=== PATIENT | female | born 1990 | race Caucasian/White ===

== ENCOUNTER 2022-12-28 20:45 | Outpatient (REF) | payer OTHER, SELFPAY ==
[2023-01-01 15:08] LABS: Age Gdln ACOG Testing Note (.); HPV Aptima Negative (Negative); IGP, Aptima HPV, rfx 16/18,45 Note (.)
== END 2022-12-28 20:46 | disposition home or self-care (01) ==
LOC: LAB 20:45
PROVIDERS: Visit Provider Obstetrics & Gynecology
DX: Z01.419 Encounter for gynecological examination (general) (routine) without abnormal findings (principal)
CPT/HCPCS: 87624; G0145

== ENCOUNTER 2023-03-03 17:02 | Outpatient (OUT) | payer OTHER, SELFPAY ==
--- NOTE | 2023-03-03 | US_ITS ---
[address] [address] Patient Name: YENI MONTAGUE MRN: [id number] date: 1990 Sex: F Assigned Patient Location: Current Patient Location: Accession/Order Number: [id number] Exam Date: 03/03/2023 17:06 Report Date: 03/03/2023 20:22 At the request of: ANDI MCDERMOTT Procedure: US pelvis transvaginal EXAM: Pelvic ultrasound HISTORY: . ABNORMAL UTERINE BLEEDING N93.9 PELVIC PAIN IN FEMALE R10.2 . COMPARISON: None. TECHNIQUE: Transvaginal scanning was performed FINDINGS: Eating of the pelvis demonstrates uterus to be retroverted and measures 7.6 x 5.3 x 5.7 cm. Endometrial complex measures 8 mm. In the endometrial cavity of the fundus of uterus there is a 7 x 5 x 3 mm hyperechoic lesion. There is a small amount of hypoechogenicity surrounding this hyper paracolic lesion. Right ovary measures 2.5 x 1.4 x 2.8 cm. Color-flow is noted. Follicles are noted. Left ovary measures 3.3 x 2.1 x 2 cm. Color-flow is noted. Follicles are noted. There is a 1.4 x 1.2 x 0.7 cm avascular cystic structure in the left ovary. No fluid is noted in the cul-de-sac. US/US pelvis transvaginal IMPRESSION: 1. Retroverted uterus. 2. Endometrial complex measures 8 mm. Within the endometrial cavity of the fundus of uterus there is a 7 x 5 x 3 mm hyperechoic lesion. This could represent a blood clot or a polyp. Less likely would be a neoplasm. There appears to be a small amount of fluid and/or blood around this lesion. 3. Normal right ovary. 4. 1.4 x 0.7 cm avascular complicated cystic structure in the right ovary. This most likely represents a follicle with a small amount of blood. Electronically authenticated by: KAT MENDEZ Date: 03/03/2023 20:22
== END 2023-03-03 17:03 | disposition home or self-care (01) ==
LOC: US 17:02
PROVIDERS: Visit Provider Obstetrics & Gynecology
DX: R10.2 Pelvic and perineal pain (principal); N93.9 Abnormal uterine and vaginal bleeding, unspecified; N83.291 Other ovarian cyst, right side
CPT/HCPCS: 76830

== ENCOUNTER 2023-06-07 14:32 | Outpatient (OUT) | payer OTHER, SELFPAY ==
[2023-06-07 15:08] LABS: Basophils Percent Auto 0.1 % (0.2-2.0); Eosinophils Absolute Auto 0.1 10^3/uL (0.0-0.7); Eosinophils Percent Auto 0.8 % (0.9-7.0); Hematocrit 41.3 % (36.0-48.0); Hemoglobin 13.7 g/dL (12.0-16.0); Immature Granulocytes Abs Auto 0.02 10^3/uL (0.00-0.03); Immature Granulocytes Pct Auto 0.3 % (0.0-0.5); Lymphocytes Absolute Auto 2.9 10^3/uL (1.2-3.8); Lymphocytes Percent Auto 36.3 % (20.5-60.0); Mean Corpuscular HGB Conc 33.2 g/dL (29.9-35.2); Mean Corpuscular Hemoglobin 31.5 pg (26.7-34.0); Mean Corpuscular Volume 94.9 fL (81.0-99.0); Mean Platelet Volume 8.9 fL (9.5-13.5); Monocytes Absolute Auto 0.4 10^3/uL (0.3-0.8); Monocytes Percent Auto 5.1 % (1.7-12.0); Neutrophils Absolute Auto 4.5 10^3/uL (1.4-6.5); Neutrophils Percent Auto 57.4 % (43.0-75.0); Platelet Count 213 10^3/uL (150-450); Red Blood Count 4.35 10^6/uL (4.20-5.40); Red Cell Distribution Width 12.2 % (11.0-15.0); White Blood Count 7.9 10^3/uL (4.0-11.0)
[2023-06-07 15:31] LABS: INR 0.95; Partial Thromboplastin Time 32.5 sec (22.3-36.2); Prothrombin Time 10.1 sec (9.0-11.6)
[2023-06-07 16:04] LABS: Alanine Aminotransferase 24 U/L (14-59); Albumin Globulin Ratio 1.2; Albumin Level 4.1 g/dL (3.4-5.0); Alkaline Phosphatase 50 U/L (46-116); Anion Gap 11.8; Aspartate Amino Transferase 10 U/L (15-37); BUN Creatinine Ratio 25.3; Bilirubin Direct 0.1 mg/dL (0.0-0.2); Bilirubin Total 0.2 mg/dL (0.2-1.0); Calcium 9.1 mg/dL (8.5-10.1); Carbon Dioxide 30.4 mmol/L (21.0-32.0); Chloride 101 mmol/L (98-107); Estimated GFR (African America >60 (>=60); Estimated GFR (Non-African Ame >60 (>=60); Globulin 3.3 g/dL; Glucose 92 mg/dL (74-106); Potassium 4.2 mmol/L (3.5-5.1); Sodium 139 mmol/L (136-145); Total Protein 7.4 g/dL (6.4-8.2)
== END 2023-06-07 14:33 | disposition home or self-care (01) ==
LOC: PST 14:33
PROVIDERS: Visit Provider Obstetrics & Gynecology
DX: Z01.812 Encounter for preprocedural laboratory examination (principal); N94.10 Unspecified dyspareunia; R10.2 Pelvic and perineal pain; N92.0 Excessive and frequent menstruation with regular cycle; N94.6 Dysmenorrhea, unspecified
CPT/HCPCS: 80048; 80076; 85025; 85610; 85730; 86850; 86900; 86901

== ENCOUNTER 2023-06-16 08:56 | Day surgery (SDC) | payer OTHER, SELFPAY ==
[2023-06-07 14:59] VITALS: BP 127/88; PULSE 80; RESP 14; TEMP 36.5; O2SAT 95; BMI 20.5
[2023-06-16] VITALS (13 sets, daily range): BP systolic 101–125; BP diastolic 66–78; PULSE 68–96; RESP 12–18; TEMP 36.4–36.6; O2SAT 92–97
[2023-06-16] MEDS: LACTATED RINGER'S SOLUTION 1,000 ML 50 ML IV (09:24)
[2023-06-16 09:25] LABS: HCG Quantitative <1 mIU/mL
[2023-06-16] MEDS: CEFAZOLIN SODIUM/DEXTROSE,ISO 1 GM/50 ML IV.SOLN IV ×2 (10:12→16:12)
[2023-06-16] MEDS: SCOPOLAMINE 1 MG/3 DAYS TRANSDERM PATCH 1 PATCH TD (10:34)
[2023-06-16] MEDS: LIDOCAINE HCL 1%-EPINEPHRINE 1:100,000 20 ML MDV INJ (12:00)
[2023-06-16] MEDS: 0.9 % SODIUM CHLORIDE 10 ML 60 ML INJ (12:00)
[2023-06-16] MEDS: LACTATED RINGER'S SOLUTION 1,000 ML 125 ML IV (12:33)
[2023-06-16] MEDS: ONDANSETRON PF 4 MG/2 ML VIAL IV (14:36)
--- NOTE | 2023-06-16 15:26 | PM.ONB ---
Brief Operative Note Date of procedure: 06/16/23 Pre-op diagnosis: menorrhagia, dysmenorrhea Post-op diagnosis: same as pre-op Procedure: NAME OF PROCEDURE: ? vNOTES hysterectomy with cystoscopy. PROCEDURE:? Patient was brought back to the operating room where she was given general anesthesia.? She was placed in the dorsolithotomy position, after being prepped and draped in a sterile fashion.? A Pickens catheter was placed.? A weighted speculum was placed posterior in the vagina.? The cervix was grasped anteriorly and posteriorly with two single tooth tenaculums and placed on traction.? A solution of Marcaine, lidocaine and epinephrine and saline was liberally infiltrated into the cervical vaginal junction.? The knife was then used to circumscribe the cervical vaginal junction and the posterior cul-de-sac was sharply entered without difficulty.? A long weighted duck tail speculum was placed and the peritoneum was tacked to the vaginal epithelium.? We then turned our attention to the uterosacral ligaments which were bilaterally cross clamped, transected and suture ligated and then were held with hemostats.? Attention was then turned to the anterior compartment, where the cervical vaginal junction was similarly divided, and the bladder was then sharply and bluntly dissected off the cervix and the lower uterine segment, and the anterior cul-de-sac was sharply entered.? The vaginal epithelium was tacked to the peritoneum.? Lateral attachments of the uterus were secured with Marlyn clamps and suture ligated.? The retractors were then removed and were placed by the path inner ring anteriorly followed by posteriorly.? Once the ring was seated, the gel cap was placed and the laparoscopic ports were placed through this cap and the gas was allowed to insufflate the pelvis.? A GynLap was placed posteriorly to facilitate mobilization of the bowel, control bleeding.? This was later retrieved.? The LigaSure device was used to secure the lateral attachments of the uterus on the left side, including the cardinal ligaments and the uterine vasculature.? Once the utero-ovarian ligament was reached, we turned our attention to the right side where the LigaSure device was used to fully detach the uterus from the pelvic side wall.? Please note absent tubes were seen. The ureters were seen visually; before, during and after the pedicles were created.? The ureters were bilaterally in normal locations, peristalsing.? ?? Please note that the LigaSure was used on the patient?s left side to fully detach the uterus from the pelvic side wall.? The uterus was removed from the field.? The GynLap was also removed from the field.? The inner ring and gel port caps were removed and the vaginal retractors were replaced.? Lateral figure of eight sutures were placed bilaterally, where bleeding occurred, behind the ring, and no further sutures were needed.? The colpopexy was then carried out, passing a stitch posteriorly to the vaginal wall, capturing the left uterosacral ligament, going across the peritoneum posteriorly to the right and exiting out the vaginal wall posteriorly.? The vaginal cuff was closed in a single running locked stitch using 0 Monocryl, and the uterosacral ligaments were cut.? Once the vaginal cuff was fully closed, the uterosacral colpopexy stitch was then tied down tightly, elevating the vaginal cuff to the uterosacral ligaments in a satisfactory manner.? The Pickens catheter was removed and the patient was awakened and taken to recovery in excellent condition.? Sponge, lap and instruments counts correct x2.? Anesthesia: FELA Surgeon: Ruben Rebolledo Contact Officer: Stephy Johnson Estimated blood loss (mL): 150 Pathology: other (uterus, cervix) Condition: stable Disposition: PACU
[2023-06-16] MEDS: IBUPROFEN 400 MG TABLET 800 MG PO (16:11)
[2023-06-16 18:07] LABS: Hematocrit 38.1 % (36.0-48.0); Hemoglobin 12.4 g/dL (12.0-16.0); Immature Granulocytes Abs Auto 0.04 10^3/uL (0.00-0.03); Immature Granulocytes Pct Auto 0.5 % (0.0-0.5); Lymphocytes Absolute Auto 0.4 10^3/uL (1.2-3.8); Lymphocytes Percent Auto 4.9 % (20.5-60.0); Mean Corpuscular HGB Conc 32.5 g/dL (29.9-35.2); Mean Corpuscular Hemoglobin 30.7 pg (26.7-34.0); Mean Corpuscular Volume 94.3 fL (81.0-99.0); Mean Platelet Volume 8.9 fL (9.5-13.5); Monocytes Absolute Auto 0.2 10^3/uL (0.3-0.8); Monocytes Percent Auto 2.1 % (1.7-12.0); Neutrophils Absolute Auto 7.2 10^3/uL (1.4-6.5); Neutrophils Percent Auto 92.5 % (43.0-75.0); Platelet Count 176 10^3/uL (150-450); Red Blood Count 4.04 10^6/uL (4.20-5.40); Red Cell Distribution Width 12.4 % (11.0-15.0); White Blood Count 7.7 10^3/uL (4.0-11.0)
== END 2023-06-16 18:30 | disposition home or self-care (01) ==
LOC: SURGOUT 12:10 → MS 12:48
PROVIDERS: Visit Provider Obstetrics & Gynecology
PROC: (CPT 944; principal; 2023-06-16 10:10)
DX: R10.2 Pelvic and perineal pain (principal); N92.0 Excessive and frequent menstruation with regular cycle; N94.6 Dysmenorrhea, unspecified; D25.9 Leiomyoma of uterus, unspecified; N72 Inflammatory disease of cervix uteri; Z98.51 Tubal ligation status; N94.10 Unspecified dyspareunia; K21.9 Gastro-esophageal reflux disease without esophagitis; Z86.16 Personal history of COVID-19
CPT/HCPCS: 58550; 36415; 84702; 85025; 88307; 94667; 94668; J1170; J2704

== ENCOUNTER 2023-11-05 11:45 | Outpatient (OUT) | payer OTHER, SELFPAY ==
--- NOTE | 2023-11-05 11:50 | US_ITS ---
The [address] [address] Patient Name: YENI MONTAGUE MRN: [id number] date: 1990 Sex: F Assigned Patient Location: US Current Patient Location: US Accession/Order Number: [id number] Exam Date: 11/05/2023 12:15 Report Date: 11/05/2023 14:15 At the request of: SJ VALLEJO Procedure: US venous doppler LE LT EXAM: US venous doppler LE LT HISTORY: Left Calf Pain M79.662 COMPARISON: None. TECHNIQUE: Grayscale, color and Doppler FINDINGS: Region: Left leg Thrombus: None Flow: Normal Augmentation: Normal Compressibility: Normal US/US venous doppler LE LT IMPRESSION: No deep or superficial vein thrombus identified in the left leg Electronically authenticated by: KAT VERA Date: 11/05/2023 14:15
--- OUTSIDE RECORDS SUMMARY | 2023-11-05 12:04 | XMS_ITS | CCD ---
Author Organization [facility] Care Team Providers Care Information Delivery Analyst Name Role Phone BALDEMAR, DR ESCAMILLA Admitting Unavailable BALDEMAR, DR ESCAMILLA Attending Unavailable BALDEMAR, DR ESCAMILLA Primary Care Unavailable BALDEMAR, DR ESCAMILLA Admitting Unavailable BALDEMAR, DR ESCAMILLA Attending Unavailable BALDEMAR, DR ESCAMILLA Primary Care Unavailable BALDEMAR, DR ESCAMILLA Consulting Unavailable BALDEMAR, DR ESCAMILLA Admitting Unavailable BALDEMAR, DR ESCAMILLA Attending Unavailable BALDEMAR, DR ESCAMILLA Primary Care Unavailable BALDEMAR, DR ESCAMILLA Consulting Unavailable NANCY MENDIOLA Consulting Unavailable GUERO, DR CEDILLO Consulting Unavailable BALDEMAR, DR ESCAMILLA Admitting Unavailable BALDEMAR, DR ESCAMILLA Attending Unavailable BALDEMAR, DR ESCAMILLA Primary Care Unavailable BALDEMAR, DR ESCAMILLA Consulting Unavailable MISC, DR CHAPMAN Admitting Unavailable MISC, DR CHAPMAN Attending Unavailable BALDEMAR, DR ESCAMILLA Primary Care Unavailable MISC, DR CHAPMAN Consulting Unavailable KAT MENDEZ Consulting Unavailable BALDEMAR, DR ESCAMILLA Admitting Unavailable BALDEMAR, DR ESCAMILLA Attending Unavailable BALEDMAR, DR ESCAMILLA Primary Care Unavailable Effort, DR Mesa Consulting Unavailable BALDEMAR, DR ESCAMILLA Consulting Unavailable MISC, DR CHAPMAN Admitting Unavailable MISC, DR CHAPMAN Attending Unavailable BALDEMAR, DR ESCAMILLA Primary Care Unavailable Guero ROBBINS, Laine Primary Care Provider LAINE JACK Referring Unavailable LAINE JACK Primary Care Unavailable ANDI REBOLLEDO Attending Unavailable CLAIR BREWER Attending Unavailable CLAIR BREWER Attending Unavailable Problems Active Problems Problem Classification Problem Date Documented Date Episodic/Chronic Contraceptive and procreative management (4 sources) Encounter for sterilization; Translations: [ENCOUNTER FOR STERILIZATION] Onset: 10-24-2021 Episodic Headache; including migraine (2 sources) Migraine without aura, not intractable, without status migrainosus; Translations: [Migraine without aura, not intractable, without status migrainosus] Onset: 05-15-2022 Chronic Immunizations and screening for infectious disease (1 source) Encounter for screening for human papillomavirus (HPV); Translations: [ENC SCREENING HUMAN PAPILLOMAVIRUS] Onset: 12-25-2021 Episodic Menstrual disorders (6 sources) Excessive and frequent menstruation with regular cycle; Translations: [Dysmenorrhea, unspecified] Onset: 09-16-2021 Chronic Other female genital disorders (1 source) Abnormal uterine and vaginal bleeding, unspecified; Translations: [ABNORMAL UTERINE VAGINAL BLEED UNS] Onset: 10-30-2021 Chronic Other female genital disorders (1 source) Other noninflammatory disorders of ovary, fallopian tube and broad ligament; Translations: [OTH NONINFL D/O OVARY TUBE AND BRD LIG] Onset: 10-30-2021 Episodic Other screening for suspected conditions (not mental disorders or infectious disease) (4 sources) Encounter for screening for malignant neoplasm of cervix; Translations: [ENC SCREENING MALIG NEOPLASM CERV] Onset: 12-23-2021 Episodic Other upper respiratory disease (2 sources) Allergic rhinitis, unspecified; Translations: [Allergic rhinitis, unspecified] Onset: 05-15-2022 Chronic Unclassified (1 source) CONTACT W/AND (SUSP) EXPOS COVID-19; Translations: [CONTACT W/AND (SUSP) EXPOS COVID-19] Onset: 10-24-2021 Past or Other Problems Problem Classification Problem Date Documented Da te Episodic/Chronic Abdominal pain (4 sources) Right upper quadrant pain; Translations: [RIGHT UPPER QUADRANT PAIN] Onset: 01-22-2021 Episodic Other gastrointestinal disorders (1 source) Diarrhea, unspecified; Translations: [DIARRHEA UNSPECIFIED] Onset: 02-01-2021 Episodic Ovarian cyst (1 source) Other ovarian cyst, left side; Translations: [OTHER OVARIAN CYST LEFT SIDE] Onset: 09-17-2021 Episodic Results Test Name Value Interpretation Reference Range Facil ity B12/Folate Panelon 2 Cobalamin (Vitamin B12) [Mass/Vol] 349 pg/mL Normal 232-[address] [facility] Comment on above: Performed By: #### F T4, LIPR, B12FOL #### [facility] [address] [place], [place] [id number] License Distributor: Juan Ramon Pandya MD #### TSHX, MG, URI, CK, CP, CDP #### [address] [place] [address] License Distributor: Kat Villalobos MD Folic Acid 13.5 ng/mL Normal >4.[address] [facility] Comment on above: Performed By: #### F T4, LIPR, B12FOL #### [address] [id number] License Distributor: Juan Ramon Pandya MD #### TSHX, MG, URI, CK, CP, CDP #### [address] [place] [address] License Distributor: Kat Villalobos MD Lipid Profileon 05-16-2022 Cholesterol [Mass/Vol] 179 mg/dL Normal <[address] [facility] Comment on above: Result Comment: Cholesterol Guidelines: <200 Desirable 200-240 Borderline >240 Undesirable Performed By: #### F T4, LIPR, B12FOL #### [address] [address] License Distributor: Juan Ramon Pandya MD #### TSHX, MG, URI, CK, CP, CDP #### [address] [place], [id number] License Distributor: Kat Villalobos MD Cholesterol in HDL [Mass/Vol] 49 mg/dL Normal >[address] [facility] Comment on above: Result Comment: HDL Guidelines: <40 Undesirable 40-59 Borderline >59 Desirable Performed By: #### F T4, LIPR, B12FOL #### [address] [address] License Distributor: Juan Ramon Pandya MD #### TSHX, MG, URI, CK, CP, CDP #### [address] [place] [address] License Distributor: Kat Villalobos MD Cholesterol in LDL [Mass/Vol] 121 mg/dL Normal 0-[address] [facility] Comment on above: Result Comment: LDL Guidelines: <100 Desirable 100-129 Near to/above Desirable 130-159 Borderline >159 Undesirable Direct (measured) LDL and calculated LDL are not interchangeable tests. Performed By: #### F T4, LIPR, B12FOL #### [place] [place] [address] License Distributor: Juan Ramon Pandya MD #### TSHX, MG, URI, CK, CP, CDP #### [facility] [address] [place] [address] License Distributor: Kat Villalobos MD Cholesterol.total/Ch olesterol in HDL [Mass ratio] 3.7 {ratio} Normal <[address] [facility] Comment on above: Performed By: #### F T4, LIPR, B12FOL #### [address] [address] License Distributor: Juan Ramon Pandya MD #### TSHX, MG, URI, CK, CP, CDP #### [address] [place] [address] License Distributor: Kat Villalobos MD Triglyceride [Mass/Vol] 46 mg/dL Normal <[address] [facility] Comment on above: Result Comment: Triglyceride Guidelines: <150 Desirable 150-199 Borderline 200-499 High >499 Very high Based on AHA Guidelines for fasting triglyceride, April 2012. Performed By: #### F T4, LIPR, B12FOL #### [address] [place], [place] [id number] License Distributor: Juan Ramon Pandya MD #### TSHX, MG, URI, CK, CP, CDP #### [facility] [address] [place] [address] License Distributor: Kat Villalobos MD Thyroxine, Freeon 05-16-2022 Thyroxine, Free 1.25 ng/dL Normal 0.93-1.70 [facility] Comment on above: Performed By: #### F T4, LIPR, B12FOL #### [facility] [address] [place] [address] License Distributor: Juan Ramon Pandya MD #### TSHX, MG, URI, CK, CP, CDP #### [facility] [address] [place] [address] License Distributor: Kat Villalobos MD CBC with Auto Differentialon 05-15-2022 Absolute Eos # 0.05 [place] [facility] Absolute Immature Granulocyte [facility] Absolute Lymph # 2.08 [facility] Absolute Sawyer # 0.29 [facility] Basophils Absolute [facility] Basophils/100 WBC (Bld) 0 % 0 - 2 % [facility] Eosinophils/100 WBC (Bld) 1 % 1 - 4 % [facility] Hematocrit (Bld) [Volume fraction] 43.3 % 36.3 - 47.1 % [facility] Hemoglobin (Bld) [Mass/Vol] 14.4 g/dL 11.9 - 15.1 g/dL [facility] Immature granulocytes/100 WBC (Bld) 0 % 0 [facility] Interpretation and review of laboratory results Abnormal [facility] Lymphocytes/100 WBC (Bld) 44 % High 24 - 43 % [facility] MCH (RBC) [Entitic mass] 31.7 pg 25.2 - 33.5 pg [facility] MCHC (RBC) [Mass/Vol] 33.3 g/dL 28.4 - 34.8 g/dL [facility] MCV (RBC) [Entitic vol] 95.4 fL 82.6 - 102.9 fL [facility] Monocytes/100 WBC (Bld) 6 % 3 - 12 % [facility] NRBC Automated 0.0 0.0 per 100 WBC [facility] Platelet distribution width (Bld) [Ratio] 12.5 % 11.8 - 14.4 % [facility] Platelet mean volume (Bld) [Entitic vol] 9.2 fL 8.1 - 13.5 fL [facility] Platelets (Bld) [#/Vol] 210 10*3/uL [facility] RBC (Bld) [#/Vol] 4.54 10*6/uL 3.95 - 5.1 1 m/uL [facility] Segmented neutrophils/100 WBC (Bld) 49 % 36 - 65 % [facility] Segs Absolute 2.34 [facility] WBC (Bld) [#/Vol] 4.8 10*3/uL [facility] CBC with Diffon 05-15-2022 Abs. Basophil <0.03 Normal 0.00-0.20 [facility] Comment on above: Performed By: #### F T4, LIPR, B12FOL #### [place] [address] License Distributor: Juan Ramon Pandya MD #### TSHX, MG, URI, CK, CP, CDP #### [facility] [address] [place] [address] [place] [id number] License Distributor: Kat Villalobos MD Abs.Imm.Granulocyte <0.03 Normal 0.00-0.[address] [facility] Comment on above: Performed By: #### F T4, LIPR, B12FOL #### [address] [id number] License Distributor: Juan Ramon Pandya MD #### TSHX, MG, URI, CK, CP, CDP #### [facility] [address] [place] [address] [place] [address] License Distributor: Kat Villalobos MD Abs.Neutrophil (Seg) 2.34 k/uL Normal 1.50-8.10 [facility] Comment on above: Performed By: #### F T4, LIPR, B12FOL #### [place] [id number] License Distributor: Juan Ramon Pandya MD #### TSHX, MG, URI, CK, CP, CDP #### [address] [place] [address] License Distributor: Kat Villalobos MD Basophils/100 WBC (Bld) 0 % Normal 0-[address] [facility] Comment on above: Performed By: #### F T4, LIPR, B12FOL #### [address] [id number] License Distributor: Juan Ramon Pandya MD #### TSHX, MG, URI, CK, CP, CDP #### [address] [place] [address] License Distributor: Kat Villalobos MD Eosinophils (Bld) [#/Vol] 0.05 10*3/uL Normal 0.00-0.[address] [facility] Comment on above: Performed By: #### F T4, LIPR, B12FOL #### [address] [id number] License Distributor: Juan Ramon Pandya MD #### TSHX, MG, URI, CK, CP, CDP #### [address] [place] [address] License Distributor: Kat Villalobos MD Eosinophils/100 WBC (Bld) 1 % Normal 1-[address] [facility] Comment on above: Performed By: #### F T4, LIPR, B12FOL #### [address] [id number] License Distributor: Juan Ramon Pandya MD #### TSHX, MG, URI, CK, CP, CDP #### [address] [place] [address] License Distributor: Kat Villalobos MD Erythrocyte distribution width (RBC) [Ratio] 12.5 % Normal 11.8-14.[address] [facility] Comment on above: Performed By: #### F T4, LIPR, B12FOL #### [address] [address] License Distributor: Juan Ramon Pandya MD #### TSHX, MG, URI, CK, CP, CDP #### [address] [place] [id number] License Distributor: Kat Villalobos MD Hematocrit (Bld) [Volume fraction] 43.3 % Normal 36.3-47.[address] [facility] Comment on above: Performed By: #### F T4, LIPR, B12FOL #### [address] [address] License Distributor: Juan Ramon Pandya MD #### TSHX, MG, URI, CK, CP, CDP #### [address] [place] [phone] License Distributor: Kat Villalobos MD Hemoglobin (Bld) [Mass/Vol] 14.4 g/dL Normal 11.9-15.[address] [facility] Comment on above: Performed By: #### F T4, LIPR, B12FOL #### [address] [address] License Distributor: Juan Ramon Pandya MD #### TSHX, MG, URI, CK, CP, CDP #### [address] [place] [id number] License Distributor: Kat Villalobos MD Immature granulocytes/100 WBC (Bld) 0 % Normal [address] [facility] Comment on above: Performed By: #### F T4, LIPR, B12FOL #### [address] [address] License Distributor: Juan Ramon Pandya MD #### TSHX, MG, URI, CK, CP, CDP #### [address] [place] [id number] License Distributor: Kat Villalobos MD Lymphocytes (Bld) [#/Vol] 2.08 10*3/uL Normal 1.10-3.[address] [facility] Comment on above: Performed By: #### F T4, LIPR, B12FOL #### [address] [address] License Distributor: Juan Ramon Pandya MD #### TSHX, MG, URI, CK, CP, CDP #### [address] [place] [phone] License Distributor: Kat Villalobos MD Lymphocytes/100 WBC (Bld) 44 % High 24-[address] [facility] Comment on above: Performed By: #### F T4, LIPR, B12FOL #### [address] [address] License Distributor: Juan Ramon Pandya MD #### TSHX, MG, URI, CK, CP, CDP #### [address] [place] [id number] License Distributor: Kat Villalobos MD MCH (RBC) [Entitic mass] 31.7 pg Normal 25.2-33.[address] [facility] Comment on above: Performed By: #### F T4, LIPR, B12FOL #### [address] [address] License Distributor: Juan Ramon Pandya MD #### TSHX, MG, URI, CK, CP, CDP #### [address] [place] [phone] License Distributor: Kat Villalobos MD MCHC (RBC) [Mass/Vol] 33.3 g/dL Normal 28.4-34.[address] [facility] Comment on above: Performed By: #### F T4, LIPR, B12FOL #### [address] [id number] License Distributor: Juan Ramon Pandya MD #### TSHX, MG, URI, CK, CP, CDP #### [address] [place] [phone] License Distributor: Kat Villalobos MD MCV (RBC) [Entitic vol] 95.4 fL Normal 82.6-102.[address] [facility] Comment on above: Performed By: #### F T4, LIPR, B12FOL #### [address] [id number] License Distributor: Juan Ramon Pandya MD #### TSHX, MG, URI, CK, CP, CDP #### [address] [place] [phone] License Distributor: Kat Villalobos MD Monocytes (Bld) [#/Vol] 0.29 10*3/uL Normal 0.10-1.[address] [facility] Comment on above: Performed By: #### F T4, LIPR, B12FOL #### [address] [id number] License Distributor: Juan Ramon Pandya MD #### TSHX, MG, URI, CK, CP, CDP #### [address] [place] [phone] License Distributor: Kat Villalobos MD Monocytes/100 WBC (Bld) 6 % Normal 3-[address] [facility] Comment on above: Performed By: #### F T4, LIPR, B12FOL #### [address] [id number] License Distributor: Juan Ramon Pandya MD #### TSHX, MG, URI, CK, CP, CDP #### [address] [place], [place] [phone] License Distributor: Kat Villalobos MD Neutrophil (Seg) 49 % Normal 36-65 [facility] Comment on above: Performed By: #### F T4, LIPR, B12FOL #### [address] [address] License Distributor: Juan Ramon Pandya MD #### TSHX, MG, URI, CK, CP, CDP #### [address] [place] [phone] License Distributor: Kat Villalobos MD NRBC Automated 0.0 per 100 WBC Normal 0.[address] [facility] Comment on above: Performed By: #### F T4, LIPR, B12FOL #### [address] [address] License Distributor: Juan Ramon Pandya MD #### TSHX, MG, URI, CK, CP, CDP #### [address] [place] [phone] License Distributor: Kat Villalobos MD Platelet mean volume (Bld) [Entitic vol] 9.2 fL Normal 8.1-13.[address] [facility] Comment on above: Performed By: #### F T4, LIPR, B12FOL #### [address] [address] License Distributor: Juan Ramon Pandya MD #### TSHX, MG, URI, CK, CP, CDP #### [address] [place] [phone] License Distributor: Kat Villalobos MD Platelets (Bld) [#/Vol] 210 10*3/uL Normal 138-[address] [facility] Comment on above: Performed By: #### F T4, LIPR, B12FOL #### [address] [address] License Distributor: Juan Ramon Pandya MD #### TSHX, MG, URI, CK, CP, CDP #### [address] [place] [phone] License Distributor: Kat Villalobos MD RBC (Bld) [#/Vol] 4.54 10*6/uL Normal 3.95-5.[address] [facility] Comment on above: Performed By: #### F T4, LIPR, B12FOL #### [facility] [address] [place] [address] License Distributor: Juan Ramon Pandya MD #### TSHX, MG, URI, CK, CP, CDP #### [facility] [address] [place], [place] [id number] License Distributor: Kat Villalobos MD WBC (Bld) [#/Vol] 4.8 10*3/uL Normal 3.5-11.[address] [facility] Comment on above: Performed By: #### F T4, LIPR, B12FOL #### [address] [phone] License Distributor: Juan Ramon Pandya MD #### TSHX, MG, URI, CK, CP, CDP #### [facility] [address] [place] [address] License Distributor: Kat Villalobos MD [facility] CK [Catalytic activity/Vol] 79 U/L 26 - 192 U/L [facility] Comp Metabolic Profon 2021 Albumin [Mass/Vol] 4.9 g/dL Normal 3.5-5.[address] [facility] Comment on above: Performed By: #### F T4, LIPR, B12FOL #### [facility] [address] [place] [address] License Distributor: Juan Ramon Pandya MD #### TSHX, MG, URI, CK, CP, CDP #### [facility] [address] [place] [address] License Distributor: Kat Villalobos MD Albumin/Glob Ratio 2.1 Normal 1.0-2.[address] [facility] Comment on above: Performed By: #### F T4, LIPR, B12FOL #### [address] [address] License Distributor: Juan Ramon Pandya MD #### TSHX, MG, URI, CK, CP, CDP #### [address] [place], [place] [phone] License Distributor: Kat Villalobos MD Alkaline Phos 43 U/L Normal 35-104 [facility] Comment on above: Performed By: #### F T4, LIPR, B12FOL #### [address] [address] License Distributor: Juan Ramon Pandya MD #### TSHX, MG, URI, CK, CP, CDP #### [address] [place] [phone] License Distributor: Kat Villalobos MD ALT [Catalytic activity/Vol] 13 U/L Normal 5-[address] [facility] Comment on above: Performed By: #### F T4, LIPR, B12FOL #### [address] [address] License Distributor: Juan Ramon Pandya MD #### TSHX, MG, URI, CK, CP, CDP #### [address] [place] [phone] License Distributor: Kat Villalobos MD Anion gap [Moles/Vol] 11 mmol/L Normal 9-[address] [facility] Comment on above: Performed By: #### F T4, LIPR, B12FOL #### [address] [id number] License Distributor: Juan Ramon Pandya MD #### TSHX, MG, URI, CK, CP, CDP #### [address] [place] [phone] License Distributor: Kta Villalobos MD AST [Catalytic activity/Vol] 15 U/L Normal <[address] [facility] Comment on above: Performed By: #### F T4, LIPR, B12FOL #### [address] [address] License Distributor: Juan Ramon Pandya MD #### TSHX, MG, URI, CK, CP, CDP #### [address] [place], [place] [id number] License Distributor: Kat Villalobos MD Bilirubin [Mass/Vol] 0.4 mg/dL Normal 0.3-1.2 [facility] Comment on above: Performed By: #### F T4, LIPR, B12FOL #### [address] [id number] License Distributor: Juan Ramon Pandya MD #### TSHX, MG, URI, CK, CP, CDP #### [address] [place] [address] License Distributor: Kat Villalobos MD BUN/CRE Ratio 19 Normal 9-20 [facility] Comment on above: Performed By: #### F T4, LIPR, B12FOL #### [address] [id number] License Distributor: Juan Ramon Pandya MD #### TSHX, MG, URI, CK, CP, CDP #### [address] [place] [address] License Distributor: Kat Villalobos MD Calcium [Mass/Vol] 9.5 mg/dL Normal 8.6-10.[address] [facility] Comment on above: Performed By: #### F T4, LIPR, B12FOL #### [address] [id number] License Distributor: Juan Ramon Pandya MD #### TSHX, MG, URI, CK, CP, CDP #### [facility] [address] [place] [address] License Distributor: Kat Villalobos MD Chloride [Moles/Vol] 103 mmol/L Normal 98-107 [facility] Comment on above: Performed By: #### F T4, LIPR, B12FOL #### [address] [id number] License Distributor: Juan Ramon Pandya MD #### TSHX, MG, URI, CK, CP, CDP #### [facility] [address] [place] [address] License Distributor: Kat Villalobos MD CO2 [Moles/Vol] 26 mmol/L Normal 20-31 [facility] Comment on above: Performed By: #### F T4, LIPR, B12FOL #### [address] [id number] License Distributor: Juan Ramon Pandya MD #### TSHX, MG, URI, CK, CP, CDP #### [facility] [address] [place] [address] License Distributor: Kat Villalobos MD Creatinine [Mass/Vol] 0.88 mg/dL Normal 0.50-0.[address] [facility] Comment on above: Performed By: #### F T4, LIPR, B12FOL #### [address] [id number] License Distributor: Juan Ramon Pandya MD #### TSHX, MG, URI, CK, CP, CDP #### [facility] [address] [place] [address] License Distributor: Kat Villalobos MD GFR/1.73 sq M.predicted among non-blacks MDRD (S/P/Bld) [Vol rate/Area] mL/min/{1.73_m2} Normal >[address] [facility] Comment on above: Result Comment: Effective Apr 06, 2022 These results are not intended for use in patients <18 years of age. eGFR results are calculated without a race factor using the 2020 CKD-EPI equation. Careful clinical correlation is recommended, particularly when comparing to results calculated using previous equations. The CKD-EPI equation is less accurate in patients with extremes of muscle mass, extra-renal metabolism of creatine, excessive creatine ingestion, or following therapy that affects renal tubular secretion. Performed By: #### F T4, LIPR, B12FOL #### [address] [address] License Distributor: Juan Ramon Pandya MD #### TSHX, MG, URI, CK, CP, CDP #### [address] [place] [address] License Distributor: Kat Villalobos MD Glucose [Mass/Vol] 99 mg/dL Normal 70-[address] [facility] Comment on above: Performed By: #### F T4, LIPR, B12FOL #### [address] [address] License Distributor: Juan Ramon Pandya MD #### TSHX, MG, URI, CK, CP, CDP #### [address] [place] [address] License Distributor: Kat Villalobos MD Potassium [Moles/Vol] 4.2 mmol/L Normal 3.7-5.[address] [facility] Comment on above: Performed By: #### F T4, LIPR, B12FOL #### [address] [id number] License Distributor: Juna Ramon Pandya MD #### TSHX, MG, URI, CK, CP, CDP #### [address] [place] [address] License Distributor: Kat Villalobos MD Protein [Mass/Vol] 7.2 g/dL Normal 6.4-8.[address] [facility] Comment on above: Performed By: #### F T4, LIPR, B12FOL #### [place] [address] [place], [place] [id number] License Distributor: Juan Ramon Pandya MD #### TSHX, MG, URI, CK, CP, CDP #### [facility] [address] [place] [address] [place] [place], [place] [phone] License Distributor: Kat Villalobos MD Sodium [Moles/Vol] 140 mmol/L Normal 135-[address] [facility] Comment on above: Performed By: #### F T4, LIPR, B12FOL #### [address] [id number] License Distributor: Juan Ramon Pandya MD #### TSHX, MG, URI, CK, CP, CDP #### [facility] [address] [place] [address] [place] [address] License Distributor: Kat Villalobos MD Urea nitrogen [Mass/Vol] 17 mg/dL Normal 6-[address] [facility] Comment on above: Performed By: #### F T4, LIPR, B12FOL #### [address] [id number] License Distributor: Juan Ramon Pandya MD #### TSHX, MG, URI, CK, CP, CDP #### [address] [place] [address] License Distributor: Kat Villalobos MD Comprehensive Metabolic [facility] 05-15-2022 Albumin [Mass/Vol] 4.9 g/dL 3.5 - 5.2 g/dL [facility] Albumin/Globulin [Mass ratio] 2.1 {ratio} 1.0 - 2.5 [facility] ALP (Bld) [Catalytic activity/Vol] 43 U/L 35 - 104 U/L [facility] ALT [Catalytic activity/Vol] 13 U/L 5 - 33 U/L [facility] Anion gap [Moles/Vol] 11 mmol/L 9 - 17 mmol/L [facility] AST [Catalytic activity/Vol] 15 U/L NINF - 32 U/L [facility] Bilirubin [Mass/Vol] 0.4 mg/dL 0.3 - 1.2 mg/dL [facility] Calcium [Mass/Vol] 9.5 mg/dL 8.6 - 10. 4 mg/dL [facility] Chloride [Moles/Vol] 103 mmol/L 98 - 107 mmol/L [facility] CO2 [Moles/Vol] 26 mmol/L 20 - 31 mmol/L [facility] Creatinine [Mass/Vol] 0.88 mg/dL 0.50 - 0.90 mg/dL [facility] GFR/1.73 sq M.predicted MDRD (S/P/Bld) [Vol rate/Area] - PINF [facility] Comment on above: Effective Apr 06, 2022 These results are not intended for use in patients <18 years of age. eGFR results are calculated without a race factor using the 2020 CKD-EPI equation. Careful clinical correlation is recommended, particularly when comparing to results calculated using previous equations. The CKD-EPI equation is less accurate in patients with extremes of muscle mass, extra-renal metabolism of creatine, excessive creatine ingestion, or following therapy that affects renal tubular secretion. Glucose [Mass/Vol] 99 mg/dL 70 - 99 mg/dL [facility] Potassium [Moles/Vol] 4.2 mmol/L 3.7 - 5.3 mmol/L [facility] Protein [Mass/Vol] 7.2 g/dL 6.4 - 8.3 g/dL [facility] Sodium [Moles/Vol] 140 mmol/L 135 - 144 mmol/L [facility] Urea nitrogen (BldV) [Mass/Vol] 17 mg/dL 6 - 20 mg/dL [facility] Urea nitrogen/Creatinine (Bld) [Mass ratio] 19 9 - 20 [facility] Creatine Kinaseon 05-15-2022 CK [Catalytic activity/Vol] 79 U/L Normal 26-[address] [facility] Comment on above: Performed By: #### F T4, LIPR, B12FOL #### [facility] [address] [place], [place] [id number] License Distributor: Juan Ramon Pandya MD #### TSHX, MG, URI, CK, CP, CDP #### [facility] [address] [place] [address] License Distributor: Kat Villalobos MD Lipid Panelon 05-15-2022 Cholesterol [Mass/Vol] 179 mg/dL NINF - 200 mg/dL [facility] Comment on above: Cholesterol Guidelines: <200 Desirable 200-240 Borderline >240 Undesirable Cholesterol in HDL [Mass/Vol] 49 mg/dL 40 - PINF mg/dL [facility] Comment on above: HDL Guidelines: <40 Undesirable 40-59 Borderline >59 Desirable Cholesterol in LDL [Mass/Vol] 121 mg/dL 0 - 130 mg/dL [facility] Comment on above: LDL Guidelines: <100 Desirable 100-129 Near to/above Desirable 130-159 Borderline >159 Undesirable Direct (measured) LDL and calculated LDL are not interchangeable tests. Cholesterol.total/Ch olesterol in HDL [Mass ratio] 3.7 {ratio} NINF - 5 [facility] Triglyceride [Mass/Vol] 46 mg/dL NINF - 150 mg/dL [facility] Comment on above: Triglyceride Guidelines: <150 Desirable 150-199 Borderline 200-499 High >499 Very high Based on AHA Guidelines for fasting triglyceride, April 2012. [facility] Magnesiumon 05-15-2022 Magnesium [Mass/Vol] 1.8 mg/dL Normal 1.6-2.6 [facility] Comment on above: Performed By: #### F T4, LIPR, B12FOL #### [facility] [address] [place], [place] [id number] License Distributor: Juan Ramon Pandya MD #### TSHX, MG, URI, CK, CP, CDP #### [facility] [address] [place] [address] License Distributor: Kat Villalobos MD Magnesium [Mass/Vol] 1.8 mg/dL 1.6 - 2.6 mg/dL [facility] No Panel Informationon 05-15 [facility] T4, Freeon 05-15-2022 Thyroxine, Free 1.25 ng/dL 0.93 - 1.70 ng/dL [facility] TSH w/reflex to FT4on 2021 Thyroid Stim. Horm. 1.19 uIU/mL Normal 0.30-5.00 [facility] Comment on above: Performed By: #### F T4, LIPR, B12FOL #### [facility] [address] [place], [place] [id number] License Distributor: Juan Ramon Pandya MD #### TSHX, MG, URI, CK, CP, CDP #### [facility] [address] [place] [address] [place] [address] License Distributor: Kat Villalobos MD TSH with Reflexon 05-15-2022 TSH Qn 1.19 m[IU]/L [facility] Uric Acidon 05-15-2022 Urate [Mass/Vol] 3.7 mg/dL Normal 2.4-5.7 [facility] Comment on above: Performed By: #### F T4, LIPR, B12FOL #### [facility] [address] [place], [place] [id number] License Distributor: Juan Ramon Pandya MD #### TSHX, MG, URI, CK, CP, CDP #### [facility] [address] [place] [address] License Distributor: Kat Villalobos MD Urate [Mass/Vol] 3.7 mg/dL 2.4 - 5.7 mg/dL [facility] Vitamin B12 & Folateon 05-15 Cobalamin (Vitamin B12) [Mass/Vol] 349 pg/mL 232 - 1245 pg/mL [facility] Folate 13.5 ng/mL 4.8 - PINF ng/mL [facility] PAP ACOG PANEL 2: 30 to 65on 12-26-2021 . . Normal [facility] Comment on above: Result Comment: Perf ormed at: WB Performed By: #### [id number] #### [facility] [address] [place] [address] Dr. Enoch Byrd DIAGNOSIS: Comment Normal [facility] Comment on above: Result Comment: NEGA TIVE FOR INTRAEPITHELIAL LESION OR MALIGNANCY. Performed at: WB Performed By: #### [id number] #### [facility] [address] [place] [address] Dr. Enoch Byrd HPV Aptima Negative Normal [facility] Comment on above: Result Comment: This nucleic acid amplification test detects fourteen high-risk HPV types (16,18,31,33,35,39,45,51,52,56,58,59,66,68) without differentiation. Performed at: =G Performed By: #### [id number] #### [facility] [address] [place] [address] Dr. Enoch Byrd Methodology: Comment Normal [facility] Comment on above: Result Comment: This liquid based ThinPrep(R) pap test was screened with the use of an image guided system. Performed at: WB Performed By: #### [id number] #### [facility] [address] [place] [address] Dr. Enoch Byrd Note: Comment [facility] Comment on above: Result Comment: The Pap smear is a screening test designed to aid in the detection of premalignant and malignant conditions of the uterine cervix. It is not a diagnostic procedure and should not be used as the sole means of detecting cervical cancer. Both false-positive and false-negative reports do occur. . Performed at: WB Performed By: #### [id number] #### [facility] [address] [place] [address] Dr. Enoch Byrd Performed by: Comment Normal [facility] Comment on above: Result Comment: Jaida Umaña Design Leader (ASCP) Performed at: WB Performed By: #### [id number] #### [facility] [address] [place] [address] Dr. Enoch Byrd Specimen adequacy: Comment Normal [facility] Comment on above: Result Comment: Sati sfactory for evaluation. Endocervical and/or squamous metaplastic cells (endocervical component) are present. Performed at: WB Performed By: #### [id number] #### [facility] [address] [place] [address] Dr. Enoch Byrd Age Gdln ACOG Testing 30-65 Normal [facility] Comment on above: Performed By: #### [id number] #### [facility] [address] [place] [address] Dr. Enoch Byrd CBC AUTO DIFFon 10-24-2021 BASO # 0.0 103/ul Normal 0.0-0.1 [facility] Comment on above: Performed By: #### C BC #### [facility] [address] [place] [address] Dr. Enoch Byrd Basophils/100 WBC (Bld) 0.2 % Normal 0.2-2.0 [facility] Comment on above: Performed By: #### C BC #### [facility] [address] [place] [address] Dr. Enoch Byrd EO # 0.1 103/ul Normal 0.0-0.7 [facility] Comment on above: Performed By: #### C BC #### [facility] [address] [place] [address] Dr. Enoch Byrd Eosinophils/100 WBC (Bld) 1.3 % Normal 0.9-7.0 [facility] Comment on above: Performed By: #### C BC #### [facility] [address] [place] [address] Dr. Enoch Byrd Erythrocyte distribution width (RBC) [Ratio] 12.9 % Normal 11.0-15.0 [facility] Comment on above: Performed By: #### C BC #### [facility] [address] [place] [address] Dr. Enoch Byrd Hematocrit (Bld) [Volume fraction] 41.2 % Normal 36.0-48.0 [facility] Comment on above: Performed By: #### C BC #### [facility] [address] [place] [address] Dr. Enoch Byrd Hemoglobin (Bld) [Mass/Vol] 14.0 g/dL Normal 12.0-16.0 [facility] Comment on above: Performed By: #### C BC #### [facility] [address] [place] [address] Dr. Enoch Byrd IG # 0.01 10e3/ul Normal 0.00-0.03 [facility] Comment on above: Performed By: #### C BC #### [facility] [address] [place] [address] Dr. Enoch Byrd IG % 0.2 % Normal 0.0-0.5 [facility] Comment on above: Performed By: #### C BC #### [facility] [address] [place] [address] Dr. Enoch Byrd LYMPH # 2.5 103/ul Normal 1.2-3.8 [facility] Comment on above: Performed By: #### C BC #### [facility] [address] [place] [address] Dr. Enoch Byrd Lymphocytes/100 WBC (Bld) 46.6 % Normal 20.5-60.0 [facility] Comment on above: Performed By: #### C BC #### [facility] [address] [place] [address] Dr. Enoch Byrd MANUAL DIFF REQ NO Normal [facility] Comment on above: Performed By: #### C BC #### [facility] [address] [place] [address] Dr. Enoch Byrd MCH (RBC) [Entitic mass] 31.5 pg Normal 26.7-34.0 [facility] Comment on above: Performed By: #### C BC #### [facility] [address] [place] [address] Dr. Enoch Byrd MCHC (RBC) [Mass/Vol] 34.0 g/dL Normal 29.9-35.2 [facility] Comment on above: Performed By: #### C BC #### [facility] [address] [place] [address] Dr. Enoch Byrd MCV (RBC) [Entitic vol] 92.8 fL Normal 81.0-99.0 [facility] Comment on above: Performed By: #### C BC #### [facility] [address] [place] [address] Dr. Enoch Byrd MONO # 0.3 103/ul Normal 0.3-0.8 [facility] Comment on above: Performed By: #### C BC #### [facility] [address] [place] [address] Dr. Enoch Byrd Monocytes/100 WBC (Bld) 5.7 % Normal 1.7-12.0 [facility] Comment on above: Performed By: #### C BC #### [facility] [address] [place] [address] Dr. Enoch Byrd NEUT # 2.5 103/ul Normal 1.4-6.5 [facility] Comment on above: Performed By: #### C BC #### [facility] [address] [place] [address] Dr. Enoch Byrd Neutrophils/100 WBC (Bld) 46.0 % Normal 43.0-75.0 [facility] Comment on above: Performed By: #### C BC #### [facility] [address] [place] [address] Dr. Enoch Byrd Platelet mean volume (Bld) [Entitic vol] 9.0 fL Critically low 9.5-13.5 [facility] Comment on above: Performed By: #### C BC #### [facility] [address] [place] [address] Dr. Enoch Byrd PLT 205 103/ul Normal 150-[address] [facility] Comment on above: Performed By: #### C BC #### [facility] [address] [place] [address] Dr. Enoch Byrd RBC 4.44 106/ul Normal 4.20-5.[address] [facility] Comment on above: Performed By: #### C BC #### [facility] [address] [place] [address] Dr. Enoch Byrd WBC 5.5 103/ul Normal 4.0-11.[address] [facility] Comment on above: Performed By: #### C BC #### [facility] [address] [place] [address] Dr. Enoch Byrd PREG HCG QUALon 10-24-2021 , QUAL Negative Normal NEGATIVE [facility] Comment on above: Performed By: #### P REG #### [facility] [address] [place] [address] Dr. Enoch Byrd Covid-19 PCR ([facility])on 10-03 SARS-CoV-2 (COVID-19) RNA JLUIS+probe Ql (Unsp spec) Not detected Normal NOT DETECTED [facility] Comment on above: Result Comment: When diagnostic testing is negative, the possibility of a false negative should be considered in the context of a patient's recent exposures and the presence of clinical signs and symptoms consistent with SARS-CoV-2. This test is not yet approved or cleared by the [place] FDA. When there are no FDA-approved or cleared tests available, and other criteria are met, FDA can make tests available under an emergency access mechanism called an Emergency Use Authorization (EUA). The EUA for this test is supported by the [place] of Health and Human Service's declaration that circumstances exist to justify the emergency use of in vitro diagnostics for the detection and/or diagnosis of the virus that causes COVID-19. This EUA will remain in effect for the duration of the COVID-19 declaration justifying emergency of IVDs, unless it is terminated or revoked by the FDA (after which the test may no longer be used). Performed By: #### P TT, PT #### [facility] [address] [place] [address] Dr. Enoch Byrd CBC AUTO DIFFon 09-16-2021 BASO # 0.0 103/ul Normal 0.0-0.[address] [facility] Comment on above: Performed By: #### C BC #### [facility] [address] [place] [address] Dr. Enoch Byrd Basophils/100 WBC (Bld) 0.2 % Normal 0.2-2.[address] [facility] Comment on above: Performed By: #### C BC #### [facility] [address] [place] [address] Dr. Enoch Byrd EO # 0.1 103/ul Normal 0.0-0.7 [facility] Comment on above: Performed By: #### C BC #### [facility] [address] [place] [address] Dr. Enoch Byrd Eosinophils/100 WBC (Bld) 1.0 % Normal 0.9-7.0 [facility] Comment on above: Performed By: #### C BC #### [facility] [address] [place] [address] Dr. Enoch Byrd Erythrocyte distribution width (RBC) [Ratio] 12.7 % Normal 11.0-15.0 [facility] Comment on above: Performed By: #### C BC #### [facility] [address] [place] [address] Dr. Enoch Byrd Hematocrit (Bld) [Volume fraction] 40.8 % Normal 36.0-48.0 [facility] Comment on above: Performed By: #### C BC #### [facility] [address] [place] [address] Dr. Enoch Byrd Hemoglobin (Bld) [Mass/Vol] 13.4 g/dL Normal 12.0-16.[address] [facility] Comment on above: Performed By: #### C BC #### [facility] [address] [place] [address] Dr. Enoch Byrd IG # 0.01 10e3/ul Normal 0.00-0.[address] [facility] Comment on above: Performed By: #### C BC #### [facility] [address] [place] [address] Dr. Enoch Byrd IG % 0.2 % Normal 0.0-0.[address] [facility] Comment on above: Performed By: #### C BC #### [facility] [address] [place] [address] Dr. Enoch Byrd LYMPH # 1.8 103/ul Normal 1.2-3.[address] [facility] Comment on above: Performed By: #### C BC #### [facility] [address] [place] [address] Dr. Enoch Byrd Lymphocytes/100 WBC (Bld) 34.8 % Normal 20.5-60.0 [facility] Comment on above: Performed By: #### C BC #### [facility] [address] [place] [address] Dr. Enoch Byrd MANUAL DIFF REQ NO Normal [facility] Comment on above: Performed By: #### C BC #### [facility] [address] [place] [address] Dr. Enoch Byrd MCH (RBC) [Entitic mass] 30.7 pg Normal 26.7-34.0 [facility] Comment on above: Performed By: #### C BC #### [facility] [address] [place] [address] Dr. Enoch Byrd MCHC (RBC) [Mass/Vol] 32.8 g/dL Normal 29.9-35.[address] [facility] Comment on above: Performed By: #### C BC #### [facility] [address] [place] [address] Dr. Enoch Byrd MCV (RBC) [Entitic vol] 93.6 fL Normal 81.0-99.0 [facility] Comment on above: Performed By: #### C BC #### [facility] [address] [place] [address] Dr. Enoch Byrd MONO # 0.3 103/ul Normal 0.3-0.8 [facility] Comment on above: Performed By: #### C BC #### [facility] [address] [place] [address] Dr. Enoch Byrd Monocytes/100 WBC (Bld) 5.7 % Normal 1.7-12.[address] [facility] Comment on above: Performed By: #### C BC #### [facility] [address] [place] [address] Dr. Enoch Byrd NEUT # 3.1 103/ul Normal 1.4-6.5 [facility] Comment on above: Performed By: #### C BC #### [facility] [address] [place] [address] Dr. Enoch Byrd Neutrophils/100 WBC (Bld) 58.1 % Normal 43.0-75.0 [facility] Comment on above: Performed By: #### C BC #### [facility] [address] [place] [address] Dr. Enoch Byrd Platelet mean volume (Bld) [Entitic vol] 9.1 fL Critically low 9.5-13.5 [facility] Comment on above: Performed By: #### C BC #### [facility] [address] [address] [address] Enoch Byrd PLT 216 103/ul Normal 150-[address] [facility] Comment on above: Performed By: #### C BC #### [facility] [address] [place] [address] Dr. Enoch Byrd RBC 4.36 106/ul Normal 4.20-5.40 [facility] Comment on above: Performed By: #### C BC #### [facility] [address] [place] [address] Dr. Enoch Byrd WBC 5.3 103/ul Normal 4.0-11.0 [facility] Comment on above: Performed By: #### C BC #### [facility] [address] [place] [address] Dr. Enoch Byrd PREG QUANT HCGon 09-16-2021 HCG QUANT 1 mIU/mL Normal [facility] Comment on above: Performed By: #### P REGQNT, TSH #### [facility] [address] [place] [address] Dr. Enoch Byrd HCG RANGE SEE BELOW Normal [facility] Comment on above: Result Comment: 5-50 0-1 WEEK 40-300 1-2 WEEKS 100-1,000 2-3 WEEKS 500-6,000 3-4 WEEKS 5,000-200,000 1-2 MONTHS 10,000-100,000 2-3 MONTHS 3,000-50,000 2ND TRIMESTER 1,000-50,000 3RD TRIMESTER Performed By: #### P REGQNT, TSH #### [facility] [address] [place] [address] Dr. Enoch Byrd PROTIMEon 09-16-2021 INR Coag (PPP) [Relative time] 0.95 {INR} Normal [facility] Comment on above: Performed By: #### P TT, PT #### [facility] [address] [place] [address] Dr. Enoch Byrd INR GUIDELINES SEE BELOW Normal [facility] Comment on above: Result Comment: MARCOS RED INR: 2.0 - 3.0 CONDITIONS NOT LISTED BELOW 2.5 - 3.5 FOR PROSTHETIC HEART VALVE REPLACEMENT 2.5 - 3.5 RECURRENT THROMBOSIS Performed By: #### P TT, PT #### [facility] [address] [place] [address] Dr. Enoch Byrd PT Coag (PPP) [Time] 10.3 s Normal 9.0-11.[address] [facility] Comment on above: Performed By: #### P TT, PT #### [facility] [address] [place] [address] Dr. Enoch Byrd PTTon 09-16-2021 aPTT Coag (Bld) [Time] 29.6 s Normal 22.3-36.2 [facility] Comment on above: Performed By: #### P TT, PT #### [facility] [address] [place] [address] Dr. Enoch Byrd TSHon 09-16-2021 TSH 0.743 uIU/mL Normal 0.470-4.680 [facility] Comment on above: Performed By: #### P REGQNT, TSH #### [facility] [address] [place] [address] Dr. Enoch Byrd TSH RANGE SEE BELOW Normal [facility] Comment on above: Result Comment: <0.3 4 UIU/ml HYPERTHYROID 0.34-5.60 UIU/ml EUTHYROID >5.60 UIU/ml HYPOTHYROID Performed By: #### P REGQNT, TSH #### [facility] [address] [place] [address] Dr. Enoch Byrd US PELVIS AND TRANSVAGon US PELVIS AND TRANSVAG EXAMINATION: US PELVIS AND TRANSVAG HISTORY: Excessive and frequent menstruation COMPARISON: 09/19/2019 FINDINGS: Transabdominal and transvaginal images The uterus is normal in size, contour and echotexture measuring 8.9 x 4.9 x 3.8 cm, anteverted. The endometrium measures 7.7 mm, normal. The right ovary measures 3.1 x 2.3 x 1.5 cm. Normal color flow. Normal resistive index of 0.4. Multiple areas of anechoic echogenicity the largest measuring 1.7 x 0.9 cm, follicles and/or cysts. The left ovary measures 3.5 x 2.4 x 2.3 cm. Normal color flow. Normal resistive index of 0.3. Septated area of anechoic echogenicity measuring 2.8 x 2.0 x 1.9 cm. No free fluid IMPRESSION: 2.8 cm left ovarian septated cyst No explanation for the patient's menometrorrhagia Electronically authenticated by: KAT VERA Date: 2021-09-16 16:[address] [facility] AMYLASEon 01-22-2021 Amylase [Catalytic activity/Vol] 66 U/L Normal 31-[address] [facility] [facility] Comment on above: Performed By: #### P TT, PT #### [facility] [address] [place] [address] Dr. Enoch Byrd CBC AUTO DIFFon 01-22-2021 BASO # 0.0 103/ul Normal 0.0-0.[address] [facility] Comment on above: Performed By: #### P TT, PT #### [facility] [address] [place] [address] Dr. Enoch Byrd Basophils/100 WBC (Bld) 0.2 % Normal 0.2-2.[address] [facility] Comment on above: Performed By: #### P TT, PT #### [facility] [address] [place] [address] Dr. Enoch Byrd EO # 0.0 103/ul Normal 0.0-0.[address] [facility] Comment on above: Performed By: #### P TT, PT #### [facility] [address] [place] [address] Dr. Enoch Byrd Eosinophils/100 WBC (Bld) 0.7 % Critically low 0.9-7.0 [facility] Comment on above: Performed By: #### P TT, PT #### [facility] [address] [place] [address] Dr. Enoch Byrd Erythrocyte distribution width (RBC) [Ratio] 12.6 % Normal 11.0-15.0 [facility] Comment on above: Performed By: #### P TT, PT #### [facility] [address] [place] [address] Dr. Enoch Byrd Hematocrit (Bld) [Volume fraction] 41.9 % Normal 36.0-48.0 [facility] Comment on above: Performed By: #### P TT, PT #### [facility] [address] [place] [address] Dr. Enoch Byrd Hemoglobin (Bld) [Mass/Vol] 13.9 g/dL Normal 12.0-16.0 [facility] Comment on above: Performed By: #### P TT, PT #### [facility] [address] [place] [address] Dr. Enoch Byrd IG # 0.01 10e3/ul Normal 0.00-0.03 [facility] Comment on above: Performed By: #### P TT, PT #### [facility] [address] [place] [address] Dr. Enoch Byrd IG % 0.2 % Normal 0.0-0.5 [facility] Comment on above: Performed By: #### P TT, PT #### [facility] [address] [place] [address] Dr. Enoch Byrd LYMPH # 2.3 103/ul Normal 1.2-3.8 [facility] Comment on above: Performed By: #### P TT, PT #### [facility] [address] [place] [address] Dr. Enoch Byrd Lymphocytes/100 WBC (Bld) 37.4 % Normal 20.5-60.0 [facility] Comment on above: Performed By: #### P TT, PT #### [facility] [address] [place] [address] Dr. Enoch Byrd MANUAL DIFF REQ NO Normal [facility] Comment on above: Performed By: #### P TT, PT #### [facility] [address] [place] [address] Dr. Enoch Byrd MCH (RBC) [Entitic mass] 31.2 pg Normal 26.7-34.0 [facility] Comment on above: Performed By: #### P TT, PT #### [facility] [address] [place] [address] Dr. Enoch Byrd MCHC (RBC) [Mass/Vol] 33.2 g/dL Normal 29.9-35.2 [facility] Comment on above: Performed By: #### P TT, PT #### [facility] [address] [place] [address] Dr. Enoch Byrd MCV (RBC) [Entitic vol] 93.9 fL Normal 81.0-99.0 [facility] Comment on above: Performed By: #### P TT, PT #### [facility] [address] [place] [address] Dr. Enoch Byrd MONO # 0.4 103/ul Normal 0.3-0.8 [facility] Comment on above: Performed By: #### P TT, PT #### [facility] [address] [place] [address] Dr. Enoch Byrd Monocytes/100 WBC (Bld) 5.9 % Normal 1.7-12.0 [facility] Comment on above: Performed By: #### P TT, PT #### [facility] [address] [place] [address] Dr. Enoch Byrd NEUT # 3.4 103/ul Normal 1.4-6.[address] [facility] Comment on above: Performed By: #### P TT, PT #### [facility] [address] [place] [address] Dr. Enoch Byrd Neutrophils/100 WBC (Bld) 55.6 % Normal 43.0-75.0 [facility] Comment on above: Performed By: #### P TT, PT #### [facility] [address] [place] [address] Dr. Enoch Byrd Platelet mean volume (Bld) [Entitic vol] 9.5 fL Normal 9.5-13.5 [facility] Comment on above: Performed By: #### P TT, PT #### [facility] [address] [place] [address] Dr. Enoch Byrd PLT 187 103/ul Normal 150-[address] [facility] Comment on above: Performed By: #### P TT, PT #### [facility] [address] [place] [address] Dr. Enoch Byrd RBC 4.46 106/ul Normal 4.20-5.40 [facility] Comment on above: Performed By: #### P TT, PT #### [facility] [address] [place] [address] Dr. Enoch Byrd WBC 6.1 103/ul Normal 4.0-11.0 [facility] Comment on above: Performed By: #### P TT, PT #### [facility] [address] [place] [address] Dr. Enoch Byrd LIPASEon 01-22-2021 Lipase [Catalytic activity/Vol] 79.0 U/L Normal 23.0-300.0 [facility] Comment on above: Performed By: #### P TT, PT #### [facility] [address] [place] [address] Dr. Enoch Byrd PROF 14(COMP METB)on 021 Albumin [Mass/Vol] 4.2 g/dL Normal 3.5-5.0 [facility] Comment on above: Performed By: #### P TT, PT #### [facility] [address] [place] [address] Dr. Enoch Byrd Albumin/Globulin [Mass ratio] 1.4 {ratio} Normal [facility] Comment on above: Performed By: #### P TT, PT #### [facility] [address] [place] [address] Dr. Enoch Byrd ALP [Catalytic activity/Vol] 42 U/L Normal 38-[address] [facility] Comment on above: Performed By: #### P TT, PT #### [facility] [address] [place] [address] Dr. Enoch Byrd ALT [Catalytic activity/Vol] 17 U/L Normal 9-52 [facility] Comment on above: Performed By: #### P TT, PT #### [facility] [address] [place] [address] Dr. Enoch Byrd Anion gap [Moles/Vol] 12.7 mmol/L Normal [facility] Comment on above: Performed By: #### P TT, PT #### [facility] [address] [address] [address] Enoch Byrd AST [Catalytic activity/Vol] 15 U/L Normal 14-36 [facility] Comment on above: Performed By: #### P TT, PT #### [facility] [address] [place] [address] Dr. Enoch Byrd Bilirubin [Mass/Vol] 0.6 mg/dL Normal 0.2-1.3 [facility] Comment on above: Performed By: #### P TT, PT #### [facility] [address] [place] [address] Dr. Enoch Byrd Calcium [Mass/Vol] 8.7 mg/dL Normal 8.4-10.2 [facility] Comment on above: Performed By: #### P TT, PT #### [facility] [address] [place] [address] Dr. Enoch Byrd Chloride [Moles/Vol] 105 mmol/L Normal 98-[address] [facility] Comment on above: Performed By: #### P TT, PT #### [facility] [address] [place] [address] Dr. Enoch Byrd CO2 [Moles/Vol] 28.8 mmol/L Normal 22.0-30.0 [facility] Comment on above: Performed By: #### P TT, PT #### [facility] [address] [place] [address] Dr. Enoch Byrd Creatinine [Mass/Vol] 0.95 mg/dL Normal 0.52-1.04 [facility] Comment on above: Performed By: #### P TT, PT #### [facility] [address] [place] [address] Dr. Enoch Byrd EGFR-AF UZBEK >60 Normal >=60 [facility] Comment on above: Performed By: #### P TT, PT #### [facility] [address] [place] [address] Dr. Enoch Byrd EGFR-NON AF UZBEK >60 Normal >=60 [facility] Comment on above: Performed By: #### P TT, PT #### [facility] [address] [place] [address] Dr. Enoch Byrd Globulin (S) [Mass/Vol] 3.1 g/dL Normal [facility] Comment on above: Performed By: #### P TT, PT #### [facility] [address] [place] [address] Dr. Enoch Byrd Glucose [Mass/Vol] 83 mg/dL Normal 74-106 [facility] Comment on above: Performed By: #### P TT, PT #### [facility] [address] [place] [address] Dr. Enoch Byrd Potassium [Moles/Vol] 4.5 mmol/L Normal 3.4-5.0 [facility] Comment on above: Performed By: #### P TT, PT #### [facility] [address] [place] [address] Dr. Enoch Byrd Protein [Mass/Vol] 7.3 g/dL Normal 6.1-8.2 [facility] Comment on above: Performed By: #### P TT, PT #### [facility] [address] [place] [address] Dr. Enoch Byrd Sodium [Moles/Vol] 142 mmol/L Normal 137-145 [facility] Comment on above: Performed By: #### P TT, PT #### [facility] [address] [place] [address] Dr. Enoch Byrd Urea nitrogen [Mass/Vol] 14.0 mg/dL Normal 7.0-17.0 [facility] Comment on above: Performed By: #### P TT, PT #### [facility] [address] [place] [address] Dr. Enoch Byrd Urea nitrogen/Creatinine [Mass ratio] 14.7 mg/mg Normal [facility] Comment on above: Performed By: #### P TT, PT #### [facility] [address] [address] [address] Enoch Byrd US SINGLE QUAD RT UPPERon US SINGLE QUAD RT UPPER Ultrasound of the right upper quadrant. HISTORY: Right upper quadrant pain . COMPARISON: None. TECHNIQUE: Grayscale and color imaging was performed FINDINGS: The pancreas appears normal. The liver is normal in size. No focal masses or biliary dilatation is noted. Color-flow is noted in the portal and hepatic veins. The gallbladder appears normal with no stones or sludge identified. No gallbladder wall thickening is noted. Common bile duct is normal measuring 2 mm. Right kidney measures 10.5 x 4.9 x 5 cm. No solid renal cortical masses or hydronephrosis is noted. No fluid is noted in the right upper quadrant. IMPRESSION: Normal ultrasound of the right upper quadrant. Electronically authenticated by: KAT MENDEZ Date: 2021-01-22 11:[address] [facility] Encounters Encounter Date Encounter Type Care Provider Facility Start: 07-28-2023 End: 07-28-2023 ambulatory CLAIR BREWER Not Available Start: 06-23-2023 End: 06-23-2023 ambulatory CLAIR BREWER Not Available Start: 05-19-2023 End: 05-19-2023 ambulatory ANDI REBOLLEDO Not Available Start: 05-15-2022 End: 05-16-2022 ambulatory [facility] Start: 05-15-2022 End: 05-16-2022 Encounter for general adult medical examination without abnormal findings [facility] Start: 05-15-2022 End: 05-15-2022 Subsequent hospital visit by physician Laine Jack MD Work Phone: [facility] Laboratory Start: 12-23-2021 End: 12-23-[address] ANDI REBOLLEDO Facility:[facility] Start: 10-24-2021 End: 10-24-[address] ANDI REBOLLEDO Facility:[facility] Start: 10-24-2021 Encounter for preprocedural laboratory examination DR ANDI REBOLLEDO [facility] Start: 10-21-2021 End: 10-22-[address] ANDI REBOLLEDO Facility:[facility] Start: 10-21-2021 End: 10-22-2021 Encounter for preprocedural laboratory examination DR ANDI REBOLLEDO Facility:[facility] Start: 10-14-2021 Encounter for other preprocedural examination DR ANDI REBOLLEDO [facility] Start: 10-09-2021 End: 10-10-[address] ANDI REBOLLEDO Facility:[facility] Start: 10-09-2021 End: 10-10-2021 Encounter for other preprocedural examination DR ANDI REBOLLEDO Facility:[facility] Start: 09-16-2021 End: 09-17-[address] ANDI REBOLLEDO Facility:[facility] Start: 01-22-2021 End: 01-23-[address] DOCTOR SCHROEDER Facility:[facility] Procedures Date Procedure Procedure Detail Performing Clinician Start: 05-15-2022 Comprehensive metabo lic panel Laine Jack MD Work Phone: Start: 05-15-2022 Lipid panel Laine snyder MD Work Phone: Start: 05-15-2022 VITAMIN B12 & FOLATE Esther Jack MD Work Phone: Plan of Treatment Date Care Activity Detail Author Start: 02-02-2022 Influenza vaccination Flu vaccine (# 1) [facility] Start: 02-28-2018 Screening for malign ant neoplasm of cervix [facility] Start: 02-28-2009 Screening for malign ant neoplasm of cervix Pap smear [facility] Start: 02-28-2007 DTaP/Tdap/Td vaccine (1 - Tdap) DTaP/Tdap/Td vaccine (1 - Tdap) [facility] Start: 02-28-2006 Hepatitis C screening Hepatitis C sc reen [facility] Start: 02-28-2003 HIV screening HIV screen [facility] Start: 2000 Depression Screen Depression Screen [facility] Start: 02-28-1989 Varicella vaccine (1 of 2 - 2-dose childhood series) Varicella vaccine (1 of 2 - 2-dose childhood series) [facility] Start: 1988 COVID-19 Vaccine (#1) COVID-19 Vacci ne (#1) [facility] [employer] Payers Date Payer Category Payer Unknown [id number] 1988 Unknown [id number] 2.16.84 [id number] 1988 Unknown [id number] 2.16.84 [id number] 1988 Unknown [id number] 2.16.84 [id number] 1988 Unknown [id number] 2.16.84 [id number] 1988 Unknown [id number] 2.16.84 [id number] 1988 Unknown [id number] 2.16.84 [id number] 1988 Unknown [id number] 2.16.84 [id number] 1988 Unknown [id number] 2.16.8 [id number] 1988 Unknown [id number] 2.16.84 [id number] 1988 Unknown [id number] 2.16.840 [id number] 1988 Unknown [id number]. [id number] 1959 Unknown [id number] Social History Date Type Detail Facility Tobacco smoking stat [facility] Tobacco smoking consumption unknown [facility] [employer] Phone: Start: 1990 Sex Assigned At Not on file B ON [employer] Phone: Clinical Note 10-24-2021 Note Date & Type Note Facility 10-24-2021 Note The [place], [place] NAME: YENI MONTAGUE DATE OF : MEDICAL REC#: [id number] WEB DATABASE DEVELOPER: [id number] BENJAMIN BREWER, TRANSADMIT DATE: 10/24/2021 08:31:00 ELECTRONICS DEPARTMENT MANAGER DATE: 11/14/2021 21:00 DICTATING PHYSICIAN: ANDI REBOLLEDO DICTATION DATE: 10/24/2021 11:00 OPERATIVE NOTE OPERATION DATE: 10/24/2021 PROCEDURE: Gina endometrial ablation with hysteroscopy, bilateral laparoscopic salpingectomy. PREOPERATIVE DIAGNOSIS: 1. Desires permanent sterilization. 2. Abnormal uterine bleeding. 3. Dysmenorrhea. POSTOPERATIVE DIAGNOSIS: 1. Desires permanent sterilization. 2. Abnormal uterine bleeding. 3. Dysmenorrhea. ANESTHESIA: General. SURGEON: Andi Rebolledo D.O. [employer]IP [employer] PERFORMERS: COLEMAN Tinoco URINE OUTPUT: Yellow and clear. FINDINGS: Normal appearing uterus, both ostia seen. No gross evidence of polyps, fibroids, malignancy. Normal appearing uterus and tubes, as well as normal appearing ovaries. Normal appearing appendix. SPECIMEN: Bilateral tubes. PROCEDURE: The patient was taken back to the OR where she was prepped and draped in the normal sterile fashion after being placed in the dorsal lithotomy position, after being placed under general anesthesia without difficulty. a weighted speculum was then placed into the vagina. The anterior lip was grasped with a single tooth tenaculum. The patient was then sounded to approximately 8 cm. The patient was gently sounded using Hegar dilators and the hysteroscope was passed through the cervix into the uterus where both ostia were seen. No gross evidence of polyps, fibroids or malignancy. The cervical length was noted to be 4 cm. The Gina ablation apparatus was set to approximately 4 cm in length. This was placed in through the cervix and into the uterus. After the seal was tested, at that time the total ablation of 120 seconds was performed with the Gina without difficulty. All instruments were removed from the vagina. A wet sponge stick was placed into the patient's vagina. Attention was then turned to the patient's abdomen, where a scalpel was used to make a small infraumbilical incision. The S retractors were then used to dissect the underlying layers until the fascia could be seen. The fascia was then grasped with John clamps and tented up. A knife was then used to make a small incision to the fascia. The muscle was identified, at that time two sutures of #0 Vicryl on a GI needle was then used and placed through the fascia. The peritoneum was then identified and entered bluntly. The 10-4 Juan was then placed into the patient's abdomen. This was confirmed with direct visualization of the bowel, using the laparoscope. The patient's abdomen was then insufflated using approximately 4 liters of CO2 gas. Survey of the patient's abdomen demonstrated normal appearing ovaries, uterus and tubes. A second and third lateral port, which was 7-8 in size and 5 mm in size, was then placed laterally after incision was made in the skin under direct visualization. The patient's tube on the patient's right side was identified. The tube was then tented up using a grasper. The LigaSure was used to transect and coagulate the mesosalpinx from the fimbriated end to the insertion at the uterus, the tube was amputated and removed in its entirety. Excellent hemostasis was noted. This was performed on the contralateral side as well. The lateral ports were then moved under direct visualization with excellent hemostasis. The abdomen was desufflated. All instruments were removed from the patient's abdomen. The fascia was closed using the #0 Vicryl on GI needle. The skin was closed using 4- 0 Vicryl subcuticularly. All instruments were removed from the patient's vagina as well. The patient was taken out of the dorsal lithotomy position and placed in the supine position and taken to recovery in stable condition. Sponge, lap and needle counts were correct x2. Electronically Authenticated and Edited by: Andi Rebolledo DO on 11/18/2021 09:39 AM EDT [facility] Signed and Approved by: DR ANDI REBOLLEDO . 11/18/2021 09:39:[address] [facility] Clinical Note 10-24-2021 Note Date & Type Note Facility 10-24-2021 Note OPERATIVE NOTE OPERATION DATE:10/24/2021 PROCEDURE: Gina endometrial ablation with hysteroscopy, bilateral laparoscopic salpingectomy. PREOPERATIVE DIAGNOSIS: Desires permanent sterilization, abnormal uterine bleeding, dysmenorrhea. POSTOPERATIVE DIAGNOSIS: Desires permanent sterilization, abnormal uterine bleeding, dysmenorrhea. ANESTHESIA: General. SURGEON: Andi Rebolledo D.O. HIP HOP PERFORMERS: COLEMAN Tinoco URINE OUTPUT: Yellow and clear. FINDINGS: Normal appearing uterus, both ostia seen. No gross evidence of polyp, fibroid, malignancy. Normal appearing uterus and tubes, as well as normal appearing ovaries. Normal appearing appendix. SPECIMEN: Bilateral tubes. PROCEDURE NOTE: The patient was taken back to the OR where she was prepped and draped in the normal sterile fashion after being placed in the dorsal lithotomy position, after being placed under general anesthesia without difficulty. The anterior lip was grasped with a single tooth tenaculum. The patient was then gently sounds. The patient was gently sounded using Hegar dilators and the hysteroscope was passed through the cervix into the uterus where both ostia were seen. No gross evidence of polyps, fibroids or malignancy. A weighted speculum was placed in the patient's vagina, the anterior tip of the cervix was identified and grasped with a single tooth tenaculum. The patient was gently sounded to roughly 8 cm. The cervical length was noted to be 4 cm. The Gina ablation apparatus was set to approximately 4 in length. This was placed in through the cervix and into the uterus. After the seal was tested, at that time the total ablation of 120 seconds was performed with the Gina without difficulty. All instruments were removed from the vagina. [facility] Summary Purpose Family History No Family History Records FoundNo Family History Records FoundNo Family History Records Found Advance Directives No Advanced Directives Records FoundNo Advanced Directives Records FoundNo Advanced Directives Records Found Additional Source Comments INFORMATION SOURCE (unrecogn ized section and content) DATE CREATED AUTHOR 12/27/2021 [facility] DATE CREATED AUTHOR AUTHOR'S ORGANIZ ATION 05/15/2022 [facility] DATE CREATED AUTHOR AUTHOR'S ORGANIZ ATION 07/29/2023 [facility] dical Specialists [facility] Care Teams (unrecognized sec tion and content) Information Delivery Analyst Relationship Specialty Start Date End Date Laine Jack MD [id number] [id number] PCP - General Family Medicine 09/02/18 FOR RECORDS PERTAINING TO PATIENTS WHO ARE OR HAVE BEEN ENROLLED IN A CHEMICAL DEPENDENCY/SUBSTANCEABUSE PROGRAM, SOME INFORMATION MAY BE OMITTED. This clinical summary was aggregated from multiple sources. Caution should be exercised in using it in the provision of clinical care. This summary normalizes information from multiple sources, and as a consequence, information in this document may materially change the coding, format and clinical context of patient data. In addition, data may be omitted in some cases. CLINICAL DECISIONS SHOULD BE BASED ON THE PRIMARY CLINICAL RECORDS. [facility] provides no warranty or guarantee of the accuracy or completeness of information in this document.
== END 2023-11-05 11:46 | disposition home or self-care (01) ==
LOC: US 11:46
PROVIDERS: Visit Provider Nurse Practitioner Family
DX: M79.662 Pain in left lower leg (principal)
CPT/HCPCS: 93971

== ENCOUNTER 2024-09-18 20:40 | Outpatient (REF) | payer OTHER, SELFPAY ==
--- OUTSIDE RECORDS SUMMARY | 2024-09-18 20:42 | XMS_ITS | CCD ---
Author Organization [facility] Care Team Providers Care Range Operator Name Role Phone BALDEMAR, DR ESCAMILLA Admitting [...] ESCAMILLA Consulting Unavailable NANCY MENDIOLA Consulting Unavailable SHAKEEL, DR CEDILLO Consulting Unavailable BALDEMAR, DR ESCAMILLA Admitting Unavailable BALDEMAR, DR ESCAMILLA Attending Unavailable BALDEMAR, DR ESCAMILLA Primary Care Unavailable BADLEMAR, DR ESCAMILLA Consulting Unavailable MISC, DR CHAPMAN Admitting Unavailable MISC, DR CHAPMAN Attending Unavailable BALDEMAR, DR ESCAMILLA Primary Care Unavailable MISC, DR CHAPMAN Consulting Unavailable KAT MENDEZ Consulting Unavailable BALDEMAR, DR ESCAMILLA Admitting Unavailable BALDEMAR, DR ESCAMILLA Attending Unavailable BALDEMAR, DR ESCAMILLA Primary Care Unavailable Riva, DR Mesa Consulting Unavailable BALDEMAR, DR ESCAMILLA Consulting Unavailable MISC, DR CHAPMAN Admitting Unavailable MISC, DR CHAPMAN Attending Unavailable BALDEMAR, DR ESCAMILLA Primary Care Unavailable Laine Jack MD Primary Care Provider LAINE JACK Referring Unavailable LAINE JACK Primary Care Unavailable ANDI REBOLLEDO Attending Unavailable DANIELLA CLAIR Attending Unavailable DANIELLA, CLAIR Attending Unavailable BALDEMAR, ANDI Attending Unavailable DANIELLA CLAIR Attending Unavailable DANIELLA, CLAIR Attending Unavailable Problems Active Problems Problem Classification [...] Interpretation Reference Range Facil ity B12/Folate Panelon Cobalamin (Vitamin B12) [Mass/Vol] 349 pg/mL Normal 232-1245 [facility] Comment on above: Performed By: #### F T4, LIPR, B12FOL #### [address] [address] Seconds Handler: Juan Ramon Pandya MD #### TSHX, MG, URI, CK, CP, CDP #### [address] [place], [place] [id number] Seconds Handler: Kat Villalobos MD Folic Acid 13.5 ng/mL Normal >4.8 [facility] Comment on above: Performed By: #### F T4, LIPR, B12FOL #### [address] [address] Seconds Handler: Juan Ramon Pandya MD #### TSHX, MG, URI, CK, CP, CDP #### [address] [place] [address] Seconds Handler: Kat Villalobos MD Lipid Profileon 05-16-2022 Cholesterol [Mass/Vol] 179 mg/dL Normal <200 [facility] Comment on above: Result Comment: Cholesterol Guidelines: <200 Desirable 200-240 Borderline >240 Undesirable Performed By: #### F T4, LIPR, B12FOL #### [address] [address] Seconds Handler: Juan Ramon Pandya MD #### TSHX, MG, URI, CK, CP, CDP #### [address] [place], [place] [phone] Seconds Handler: Kat Villalobos MD Cholesterol in HDL [Mass/Vol] 49 mg/dL Normal >40 [facility] Comment on above: Result Comment: HDL Guidelines: <40 Undesirable 40-59 Borderline >59 Desirable Performed By: #### F T4, LIPR, B12FOL #### [address] [address] Seconds Handler: Juan Ramon Pandya MD #### TSHX, MG, URI, CK, CP, CDP #### [facility] [address] [place] [address] [place] [address] Seconds Handler: Kat Villalobos MD Cholesterol in LDL [Mass/Vol] 121 mg/dL Normal 0-130 [facility] Comment on above: Result Comment: LDL Guidelines: <100 Desirable 100-129 Near to/above Desirable 130-159 Borderline >159 Undesirable Direct (measured) LDL and calculated LDL are not interchangeable tests. Performed By: #### F T4, LIPR, B12FOL #### [address] [address] Seconds Handler: Juan Ramon Pandya MD #### TSHX, MG, URI, CK, CP, CDP #### [address] [place] [address] Seconds Handler: Kat Villalobos MD Cholesterol.total/Ch olesterol in HDL [Mass ratio] 3.7 {ratio} Normal <5 [facility] Comment on above: Performed By: #### F T4, LIPR, B12FOL #### [address] [address] Seconds Handler: Juan Ramon Pandya MD #### TSHX, MG, URI, CK, CP, CDP #### [address] [place] [address] Seconds Handler: Kat Villalobos MD Triglyceride [Mass/Vol] 46 mg/dL Normal <150 [facility] Comment on above: Result Comment: Triglyceride Guidelines: <150 Desirable 150-199 Borderline 200-499 High >499 Very high Based on AHA Guidelines for fasting triglyceride, April 2012. Performed By: #### F T4, LIPR, B12FOL #### [address] [address] Seconds Handler: Juan Ramon Pandya MD #### TSHX, MG, URI, CK, CP, CDP #### [address] [place] [address] Seconds Handler: Kat Villalobos MD Thyroxine, Freeon 05-16-2022 Thyroxine, Free 1.25 ng/dL Normal 0.93-1.70 [facility] Comment on above: Performed By: #### F T4, LIPR, B12FOL #### [facility] [address] [place] [address] Seconds Handler: Juan Ramon Pandya MD #### TSHX, MG, URI, CK, CP, CDP #### [facility] [address] [place] [address] Seconds Handler: Kat Villalobos MD CBC with Auto Differentialon 05-15-2022 Absolute Eos # 0.05 [facility] Absolute Immature Granulocyte [facility] Absolute Lymph # 2.08 [facility] Absolute Niobrara # 0.29 [facility] Basophils Absolute [facility] Basophils/100 WBC (Bld) 0 % 0 - 2 % [facility] Eosinophils/100 WBC (Bld) 1 % 1 - 4 % [facility] Hematocrit (Bld) [Volume fraction] 43.3 % 36.3 - 47.1 % [facility] Hemoglobin (Bld) [Mass/Vol] 14.4 g/dL 11.9 - 15.1 g/dL [facility] Immature granulocytes/100 WBC (Bld) 0 % 0 [facility] Interpretation and review of laboratory results Abnormal [facility] Lymphocytes/100 WBC (Bld) 44 % High 24 - 43 % [facility] MCH (RBC) [Entitic mass] 31.7 pg 25.2 - 33.5 pg [facility] MCHC (RBC) [Mass/Vol] 33.3 g/dL 28.4 - 34.8 g/dL [facility] MCV (RBC) [Entitic vol] 95.4 fL 82.6 - 102.9 fL [facility] Monocytes/100 WBC (Bld) 6 % 3 - 12 % [facility] NRBC Automated 0.0 0.0 per 100 WBC [facility] Platelet distribution width (Bld) [Ratio] 12.5 % 11.8 - 14.4 % [facility] Platelet mean volume (Bld) [Entitic vol] 9.2 fL 8.1 - 13.5 fL [facility] Platelets (Bld) [#/Vol] 210 10*3/uL [facility] RBC (Bld) [#/Vol] 4.54 10*6/uL 3.95 - 5.1 1 m/uL [facility] Segmented neutrophils/100 WBC (Bld) 49 % 36 - 65 % [facility] Segs Absolute 2.34 [facility] WBC (Bld) [#/Vol] 4.8 10*3/uL [facility] CBC with Diffon 05-15-2022 Abs. Basophil <0.03 Normal 0.00-0.20 [facility] Comment on above: Performed By: #### F T4, LIPR, B12FOL #### [place] [address] Seconds Handler: Juan Ramon Pandya MD #### TSHX, MG, URI, CK, CP, CDP #### [address] [place] [phone] Seconds Handler: Kat Villalobos MD Abs.Imm.Granulocyte <0.03 Normal 0.00-0.30 [facility] Comment on above: Performed By: #### F T4, LIPR, B12FOL #### [place] [address] Seconds Handler: Juan Ramon Pandya MD #### TSHX, MG, URI, CK, CP, CDP #### [address] [place] [address] Seconds Handler: Kat Villalobos MD Abs.Neutrophil (Seg) 2.34 k/uL Normal 1.50-8.10 [facility] Comment on above: Performed By: #### F T4, LIPR, B12FOL #### [address] [address] Seconds Handler: Juan Ramon Pandya MD #### TSHX, MG, URI, CK, CP, CDP #### [address] [place], [place] 24[address] Seconds Handler: Kat Villalobos MD Basophils/100 WBC (Bld) 0 % Normal 0-2 [facility] Comment on above: Performed By: #### F T4, LIPR, B12FOL #### [address] [address] Seconds Handler: Juan Ramon Pandya MD #### TSHX, MG, URI, CK, CP, CDP #### [address] [place] [id number] Seconds Handler: Kat Villalobos MD Eosinophils (Bld) [#/Vol] 0.05 10*3/uL Normal 0.00-0.44 [facility] Comment on above: Performed By: #### F T4, LIPR, B12FOL #### [address] [address] Seconds Handler: Juan Ramon Pandya MD #### TSHX, MG, URI, CK, CP, CDP #### [address] [place] [address] Seconds Handler: Kat Villalobos MD Eosinophils/100 WBC (Bld) 1 % Normal 1-4 [facility] Comment on above: Performed By: #### F T4, LIPR, B12FOL #### [address] [address] Seconds Handler: Juan Ramon Pandya MD #### TSHX, MG, URI, CK, CP, CDP #### [address] [place] [address] Seconds Handler: Kat Villalobos MD Erythrocyte distribution width (RBC) [Ratio] 12.5 % Normal 11.8-14.4 [facility] Comment on above: Performed By: #### F T4, LIPR, B12FOL #### [address] [address] Seconds Handler: Juan Ramon Pandya MD #### TSHX, MG, URI, CK, CP, CDP #### [address] [place] [phone] Seconds Handler: Kat Villalobos MD Hematocrit (Bld) [Volume fraction] 43.3 % Normal 36.3-47.1 [facility] Comment on above: Performed By: #### F T4, LIPR, B12FOL #### [address] [address] Seconds Handler: Juan Ramon Pandya MD #### TSHX, MG, URI, CK, CP, CDP #### [address] [place] [phone] Seconds Handler: Kat Villalobos MD Hemoglobin (Bld) [Mass/Vol] 14.4 g/dL Normal 11.9-15.1 [facility] Comment on above: Performed By: #### F T4, LIPR, B12FOL #### [address] [id number] Seconds Handler: Juan Ramon Pandya MD #### TSHX, MG, URI, CK, CP, CDP #### [address] [place] [phone] Seconds Handler: Kat Villalobos MD Immature granulocytes/100 WBC (Bld) 0 % Normal 0 [facility] Comment on above: Performed By: #### F T4, LIPR, B12FOL #### [address] [address] Seconds Handler: Juan Ramon Pandya MD #### TSHX, MG, URI, CK, CP, CDP #### [facility] [address] [place] [phone] Seconds Handler: Kat Villalobos MD Lymphocytes (Bld) [#/Vol] 2.08 10*3/uL Normal 1.10-3.70 [facility] Comment on above: Performed By: #### F T4, LIPR, B12FOL #### [address] [address] Seconds Handler: Juan Ramon Pandya MD #### TSHX, MG, URI, CK, CP, CDP #### [address] [place] [phone] Seconds Handler: Kat Villalobos MD Lymphocytes/100 WBC (Bld) 44 % High 24-43 [facility] Comment on above: Performed By: #### F T4, LIPR, B12FOL #### [address] [address] Seconds Handler: Juan Ramon Pandya MD #### TSHX, MG, URI, CK, CP, CDP #### [address] [place] [phone] Seconds Handler: Kat Villalobos MD MCH (RBC) [Entitic mass] 31.7 pg Normal 25.2-33.5 [facility] Comment on above: Performed By: #### F T4, LIPR, B12FOL #### [address] [address] Seconds Handler: Juan Ramon Pandya MD #### TSHX, MG, URI, CK, CP, CDP #### [address] [place] [address] Seconds Handler: Kat Villalobos MD MCHC (RBC) [Mass/Vol] 33.3 g/dL Normal 28.4-34.8 [facility] Comment on above: Performed By: #### F T4, LIPR, B12FOL #### [address] [address] Seconds Handler: Juan Ramon Pandya MD #### TSHX, MG, URI, CK, CP, CDP #### [address] [place] [phone] Seconds Handler: Kat Villalobos MD MCV (RBC) [Entitic vol] 95.4 fL Normal 82.6-102.9 [facility] Comment on above: Performed By: #### F T4, LIPR, B12FOL #### [address] [address] Seconds Handler: Juan Ramon Pandya MD #### TSHX, MG, URI, CK, CP, CDP #### [address] [place] [phone] Seconds Handler: Kat Villalobos MD Monocytes (Bld) [#/Vol] 0.29 10*3/uL Normal 0.10-1.20 [facility] Comment on above: Performed By: #### F T4, LIPR, B12FOL #### [address] [address] Seconds Handler: Juan Ramon Pandya MD #### TSHX, MG, URI, CK, CP, CDP #### [address] [place] [phone] Seconds Handler: Kat Villalobos MD Monocytes/100 WBC (Bld) 6 % Normal 3-12 [facility] Comment on above: Performed By: #### F T4, LIPR, B12FOL #### [address] [address] Seconds Handler: Juan Ramon Pandya MD #### TSHX, MG, URI, CK, CP, CDP #### [address] [place] [phone] Seconds Handler: Kat Villalobos MD Neutrophil (Seg) 49 % Normal 36-65 [facility] Comment on above: Performed By: #### F T4, LIPR, B12FOL #### [address] [address] Seconds Handler: Juan Ramon Pandya MD #### TSHX, MG, URI, CK, CP, CDP #### [address] [place] [phone] Seconds Handler: Kat Villalobos MD NRBC Automated 0.0 per 100 WBC Normal 0.0 [facility] Comment on above: Performed By: #### F T4, LIPR, B12FOL #### [address] [address] Seconds Handler: Juan Ramon Pandya MD #### TSHX, MG, URI, CK, CP, CDP #### [address] [place] [id number] Seconds Handler: Kat Villalobos MD Platelet mean volume (Bld) [Entitic vol] 9.2 fL Normal 8.1-13.5 [facility] Comment on above: Performed By: #### F T4, LIPR, B12FOL #### [address] [address] Seconds Handler: Juan Ramon Pandya MD #### TSHX, MG, URI, CK, CP, CDP #### [address] [place] [id number] Seconds Handler: Kat Villalobos MD Platelets (Bld) [#/Vol] 210 10*3/uL Normal 138-453 [facility] Comment on above: Performed By: #### F T4, LIPR, B12FOL #### [address] [address] Seconds Handler: Juan Ramon Pandya MD #### TSHX, MG, URI, CK, CP, CDP #### [address] [place] [address] Seconds Handler: Kat Villalobos MD RBC (d) [#/Vol] 4.54 10*6/uL Normal 3.95-5.11 [facility] Comment on above: Performed By: #### F T4, LIPR, B12FOL #### [address] [id number] Seconds Handler: Juan Ramon Pandya MD #### TSHX, MG, URI, CK, CP, CDP #### [address] [place] [address] Seconds Handler: Kat Villalobos MD WBC (Bld) [#/Vol] 4.8 10*3/uL Normal 3.5-11.3 [facility] Comment on above: Performed By: #### F T4, LIPR, B12FOL #### [address] [id number] Seconds Handler: Juan Ramon Pandya MD #### TSHX, MG, URI, CK, CP, CDP #### [address] [place] [address] Seconds Handler: Kat Villalobos MD CKon 05-15-2022 CK [Catalytic activity/Vol] 79 U/L 26 - 192 U/L [facility] Comp Metabolic Profon 2021 Albumin [Mass/Vol] 4.9 g/dL Normal 3.5-5.2 [facility] Comment on above: Performed By: #### F T4, LIPR, B12FOL #### [address] [id number] Seconds Handler: Juan Ramon Pandya MD #### TSHX, MG, URI, CK, CP, CDP #### [address] [place] [address] Seconds Handler: Kat Villalobos MD Albumin/Glob Ratio 2.1 Normal 1.0-2.5 [facility] Comment on above: Performed By: #### F T4, LIPR, B12FOL #### [address] [address] Seconds Handler: Juan Ramon Pandya MD #### TSHX, MG, URI, CK, CP, CDP #### [address] [place] [id number] Seconds Handler: Kat Villalobos MD Alkaline Phos 43 U/L Normal 35-104 [facility] Comment on above: Performed By: #### F T4, LIPR, B12FOL #### [address] [id number] Seconds Handler: Juan Ramon Pandya MD #### TSHX, MG, URI, CK, CP, CDP #### [address] [place] [id number] Seconds Handler: Kat Villalobos MD ALT [Catalytic activity/Vol] 13 U/L Normal 5-33 [facility] Comment on above: Performed By: #### F T4, LIPR, B12FOL #### [address] [id number] Seconds Handler: Juan Ramon Pandya MD #### TSHX, MG, URI, CK, CP, CDP #### [address] [place] [address] Seconds Handler: Kat Villalobos MD Anion gap [Moles/Vol] 11 mmol/L Normal 9-17 [facility] Comment on above: Performed By: #### F T4, LIPR, B12FOL #### [address] [id number] Seconds Handler: Juan Ramon Pandya MD #### TSHX, MG, URI, CK, CP, CDP #### [facility] [address] [place], [place] [phone] Seconds Handler: Kat Villalobos MD AST [Catalytic activity/Vol] 15 U/L Normal <32 [facility] Comment on above: Performed By: #### F T4, LIPR, B12FOL #### [address] [address] Seconds Handler: Juan Ramon Pandya MD #### TSHX, MG, URI, CK, CP, CDP #### [facility] [address] [place], [place] 809[address]83 Seconds Handler: Kat Villalobos MD Bilirubin [Mass/Vol] 0.4 mg/dL Normal 0.3-1.2 [facility] Comment on above: Performed By: #### F T4, LIPR, B12FOL #### [address] [address] Seconds Handler: Juan Ramon Pandya MD #### TSHX, MG, URI, CK, CP, CDP #### [address] [place] [address] Seconds Handler: Kat Villalobos MD BUN/CRE Ratio 19 Normal 9-20 [facility] Comment on above: Performed By: #### F T4, LIPR, B12FOL #### [address] [address] Seconds Handler: Juan Ramon Pandya MD #### TSHX, MG, URI, CK, CP, CDP #### [address] [place] [address] Seconds Handler: Kat Villalobos MD Calcium [Mass/Vol] 9.5 mg/dL Normal 8.6-10.4 [facility] Comment on above: Performed By: #### F T4, LIPR, B12FOL #### [address] [id number] Seconds Handler: Juan Ramon Pandya MD #### TSHX, MG, URI, CK, CP, CDP #### [address] [place] [address] Seconds Handler: Kat Villalobos MD Chloride [Moles/Vol] 103 mmol/L Normal 98-107 [facility] Comment on above: Performed By: #### F T4, LIPR, B12FOL #### [address] [id number] Seconds Handler: Juan Ramon Pandya MD #### TSHX, MG, URI, CK, CP, CDP #### [address] [place] [address] Seconds Handler: Kat Villalobos MD CO2 [Moles/Vol] 26 mmol/L Normal 20-31 [facility] Comment on above: Performed By: #### F T4, LIPR, B12FOL #### [address] [id number] Seconds Handler: Juan Ramon Pandya MD #### TSHX, MG, URI, CK, CP, CDP #### [address] [place] [address] Seconds Handler: Kat Villalobos MD Creatinine [Mass/Vol] 0.88 mg/dL Normal 0.50-0.90 [facility] Comment on above: Performed By: #### F T4, LIPR, B12FOL #### [address] [id number] Seconds Handler: Juan Ramon Pandya MD #### TSHX, MG, URI, CK, CP, CDP #### [address] [place] [address] Seconds Handler: Kat Villalobos MD GFR/1.73 sq M.predicted among non-blacks MDRD (S/P/Bld) [Vol rate/Area] mL/min/{1.73_m2} Normal >60 [facility] Comment on above: Result Comment: Effective Apr [...] By: #### F T4, LIPR, B12FOL #### [address] [address] Seconds Handler: Juan Ramon Pandya MD #### TSHX, MG, URI, CK, CP, CDP #### [facility] [address] [place] [address] [place] [address] Seconds Handler: Kat Villalobos MD Glucose [Mass/Vol] 99 mg/dL Normal 70-99 [facility] Comment on above: Performed By: #### F T4, LIPR, B12FOL #### [address] [id number] Seconds Handler: Juan Ramon Pandya MD #### TSHX, MG, URI, CK, CP, CDP #### [facility] [address] [place] [address] [place] [address] Seconds Handler: Kat Villalobos MD Potassium [Moles/Vol] 4.2 mmol/L Normal 3.7-5.3 [facility] Comment on above: Performed By: #### F T4, LIPR, B12FOL #### [address] [id number] Seconds Handler: Juan Ramon Pandya MD #### TSHX, MG, URI, CK, CP, CDP #### [facility] [address] [place] [address] Seconds Handler: Kat Villalobos MD Protein [Mass/Vol] 7.2 g/dL Normal 6.4-8.3 [facility] Comment on above: Performed By: #### F T4, LIPR, B12FOL #### [address] [id number] Seconds Handler: Juan Ramon Pandya MD #### TSHX, MG, URI, CK, CP, CDP #### [address] [place] [id number] Seconds Handler: Kat Villalobos MD Sodium [Moles/Vol] 140 mmol/L Normal 135-144 [facility] Comment on above: Performed By: #### F T4, LIPR, B12FOL #### [address] [id number] Seconds Handler: Juan Ramon Pandya MD #### TSHX, MG, URI, CK, CP, CDP #### [address] [place] [id number] Seconds Handler: Kat Villalobos MD Urea nitrogen [Mass/Vol] 17 mg/dL Normal 6-20 [facility] Comment on above: Performed By: #### F T4, LIPR, B12FOL #### [address] [id number] Seconds Handler: Juan Ramon Pandya MD #### TSHX, MG, URI, CK, CP, CDP #### [address] [place] [id number] Seconds Handler: Kat Villalobos MD Comprehensive Metabolic Pane [facility] 05-15-2022 Albumin [Mass/Vol] 4.9 g/dL 3.5 - 5.2 g/dL [facility] Albumin/Globulin [Mass ratio] 2.1 {ratio} 1.0 - 2.5 [facility] ALP (Bld) [Catalytic activity/Vol] 43 U/L 35 - 104 U/L [facility] ALT [Catalytic activity/Vol] 13 U/L 5 - 33 U/L [facility] Anion gap [Moles/Vol] 11 mmol/L 9 - 17 mmol/L [facility] AST [Catalytic activity/Vol] 15 U/L NINF - 32 U/L [facility] Bilirubin [Mass/Vol] 0.4 mg/dL 0.3 - 1.2 mg/dL [facility] Calcium [Mass/Vol] 9.5 mg/dL 8.6 - 10. 4 mg/dL [facility] Chloride [Moles/Vol] 103 mmol/L 98 - 107 mmol/L [facility] CO2 [Moles/Vol] 26 mmol/L 20 - 31 mmol/L [facility] Creatinine [Mass/Vol] 0.88 mg/dL 0.50 - 0.90 mg/dL [facility] GFR/1.73 sq M.predicted MDRD (S/P/Bld) [Vol rate/Area] - PINF [facility] Comment on above: Effective Apr 06, 2022 [...] [Mass/Vol] 99 mg/dL 70 - 99 mg/dL [facility] Potassium [Moles/Vol] 4.2 mmol/L 3.7 - 5.3 mmol/L [facility] Protein [Mass/Vol] 7.2 g/dL 6.4 - 8.3 g/dL [facility] Sodium [Moles/Vol] 140 mmol/L 135 - 144 mmol/L [facility] Urea nitrogen (BldV) [Mass/Vol] 17 mg/dL 6 - 20 mg/dL [facility] Urea nitrogen/Creatinine (Bld) [Mass ratio] 19 9 - 20 [facility] Creatine Kinaseon 05-15-2022 CK [Catalytic activity/Vol] 79 U/L Normal 26-192 [facility] Comment on above: Performed By: #### F T4, LIPR, B12FOL #### [facility] [address] [place], [place] [id number] Seconds Handler: Juan Ramon Pandya MD #### TSHX, MG, URI, CK, CP, CDP #### [facility] [address] [place] [address] Seconds Handler: Kat Villalobos MD Lipid Panelon 05-15-2022 Cholesterol [Mass/Vol] 179 mg/dL NINF - 200 mg/dL [facility] Comment on above: Cholesterol Guidelines: <200 Desirable 200-240 Borderline >240 Undesirable Cholesterol in HDL [Mass/Vol] 49 mg/dL 40 - PINF mg/dL [facility] Comment on above: HDL Guidelines: <40 Undesirable 40-59 Borderline >59 Desirable Cholesterol in LDL [Mass/Vol] 121 mg/dL 0 - 130 mg/dL [facility] Comment on above: LDL Guidelines: <100 Desirable 100-129 Near to/above Desirable 130-159 Borderline >159 Undesirable Direct (measured) LDL and calculated LDL are not interchangeable tests. Cholesterol.total/Ch olesterol in HDL [Mass ratio] 3.7 {ratio} NINF - 5 [facility] Triglyceride [Mass/Vol] 46 mg/dL NINF - 150 mg/dL [facility] Comment on above: Triglyceride Guidelines: <150 Desirable 150-199 Borderline 200-499 High >499 Very high Based on AHA Guidelines for fasting triglyceride, April 2012. [facility] Magnesiumon 05-15-2022 Magnesium [Mass/Vol] 1.8 mg/dL Normal 1.6-2.6 [facility] Comment on above: Performed By: #### F T4, LIPR, B12FOL #### [facility] [address] [place], [place] [id number] Seconds Handler: Juan Ramon Pandya MD #### TSHX, MG, URI, CK, CP, CDP #### [facility] [address] [place] [address] Seconds Handler: Kat Villalobos MD Magnesium [Mass/Vol] 1.8 mg/dL 1.6 - 2.6 mg/dL [facility] No Panel Informationon 05-15 [facility] T4, Freeon 05-15-2022 Thyroxine, Free 1.25 ng/dL 0.93 - 1.70 ng/dL [facility] TSH w/reflex to FT4on 2021 Thyroid Stim. Horm. 1.19 uIU/mL Normal 0.30-5.00 [facility] Comment on above: Performed By: #### F T4, LIPR, B12FOL #### [facility] [address] [place], [place] [id number] Seconds Handler: Juan Ramon Pandya MD #### TSHX, MG, URI, CK, CP, CDP #### [facility] [address] [place] [address] [place] [address] Seconds Handler: Kat Villalobos MD TSH with Reflexon 05-15-2022 TSH Qn 1.19 m[IU]/L [facility] Uric Acidon 05-15-2022 Urate [Mass/Vol] 3.7 mg/dL Normal 2.4-5.7 [facility] Comment on above: Performed By: #### F T4, LIPR, B12FOL #### [facility] [address] [place], [place] [id number] Seconds Handler: Juan Ramon Pandya MD #### TSHX, MG, URI, CK, CP, CDP #### [facility] [address] [place] [address] Seconds Handler: Kat Villalobos MD Urate [Mass/Vol] 3.7 mg/dL 2.4 - 5.7 mg/dL [facility] Vitamin B12 & Folateon 05-15 Cobalamin (Vitamin B12) [Mass/Vol] 349 pg/mL 232 - 1245 pg/mL [facility] Folate 13.5 ng/mL 4.8 - PINF ng/mL [facility] PAP ACOG PANEL 2: 30 to 65on 12-26-2021 . . Normal [facility] Comment on above: Result Comment: Perf ormed at: WB Performed By: #### [id number] #### [facility] [address] [place] [address] Dr. Enoch Byrd DIAGNOSIS: Comment Normal [facility] Comment on above: Result Comment: NEGA TIVE FOR INTRAEPITHELIAL LESION OR MALIGNANCY. Performed at: WB Performed By: #### [id number] #### [facility] [address] [address] [address] Enoch Byrd HPV Aptima Negative Normal Negative [facility] Comment on above: Result Comment: This nucleic acid amplification test detects fourteen high-risk HPV types (16,18,31,33,35,39,45,51,52,56,58,59,66,68) without differentiation. Performed at: =G Performed By: #### [id number] #### [facility] [address] [place] [address] Dr. Enoch Byrd Methodology: Comment Normal [facility] Comment on above: Result Comment: This liquid based ThinPrep(R) pap test was screened with the use of an image guided system. Performed at: WB Performed By: #### [id number] #### [facility] [address] [place] [address] Dr. Enoch Byrd Note: Comment Normal [facility] Comment on above: Result Comment: The Pap smear is a screening test designed to aid in the detection of premalignant and malignant conditions of the uterine cervix. It is not a diagnostic procedure and should not be used as the sole means of detecting cervical cancer. Both false-positive and false-negative reports do occur. . Performed at: WB Performed By: #### [id number] #### [facility] [address] [place] [address] Dr. Enoch Byrd Performed by: Comment Normal [facility] Comment on above: Result Comment: Jaida Umaña, Associate Professor (ASCP) Performed at: WB Performed By: #### [id number] #### [facility] [address] [place] [address] Dr. Enoch Byrd Specimen adequacy: Comment Normal [facility] Comment on above: Result Comment: Sati sfactory for evaluation. Endocervical and/or squamous metaplastic cells (endocervical component) are present. Performed at: WB Performed By: #### [id number] #### [facility] [address] [place] [address] Dr. Enoch Byrd Age Gdln ACOG Testing 30-65 Normal [facility] Comment on above: Performed By: #### [id number] #### [facility] [address] [place] [address] Dr. Enoch Byrd CBC AUTO DIFFon 10-24-2021 BASO # 0.0 103/ul Normal 0.0-0.1 [facility] Comment on above: Performed By: #### C BC #### [facility] [address] [place] [address] Dr. Enoch Byrd Basophils/100 WBC (Bld) 0.2 % Normal 0.2-2.0 [facility] Comment on above: Performed By: #### C BC #### [facility] [address] [place] [address] Dr. Enoch Byrd EO # 0.1 103/ul Normal 0.0-0.7 [facility] Comment on above: Performed By: #### C BC #### [facility] [address] [place] [address] Dr. Enoch Byrd Eosinophils/100 WBC (Bld) 1.3 % Normal 0.9-7.0 [facility] Comment on above: Performed By: #### C BC #### [facility] [address] [place] [address] Dr. Enoch Byrd Erythrocyte distribution width (RBC) [Ratio] 12.9 % Normal 11.0-15.0 [facility] Comment on above: Performed By: #### C BC #### [facility] [address] [place] [address] Dr. Enoch Byrd Hematocrit (Bld) [Volume fraction] 41.2 % Normal 36.0-48.0 [facility] Comment on above: Performed By: #### C BC #### [facility] [address] [place] [address] Dr. Enoch Byrd Hemoglobin (Bld) [Mass/Vol] 14.0 g/dL Normal 12.0-16.0 [facility] Comment on above: Performed By: #### C BC #### [facility] [address] [place] [address] Dr. Enoch Byrd IG # 0.01 10e3/ul Normal 0.00-0.03 [facility] Comment on above: Performed By: #### C BC #### [facility] [address] [place] [address] Dr. Enoch Byrd IG % 0.2 % Normal 0.0-0.5 [facility] Comment on above: Performed By: #### C BC #### [facility] [address] [place] [address] Dr. Enoch Byrd LYMPH # 2.5 103/ul Normal 1.2-3.8 [facility] Comment on above: Performed By: #### C BC #### [facility] [address] [place] [address] Dr. Enoch Byrd Lymphocytes/100 WBC (Bld) 46.6 % Normal 20.5-60.0 [facility] Comment on above: Performed By: #### C BC #### [facility] [address] [place] [address] Dr. Enoch Byrd MANUAL DIFF REQ NO Normal [facility] Comment on above: Performed By: #### C BC #### [facility] [address] [place] [address] Dr. Enoch Byrd MCH (RBC) [Entitic mass] 31.5 pg Normal 26.7-34.0 [facility] Comment on above: Performed By: #### C BC #### [facility] [address] [place] [address] Dr. Enoch Byrd MCHC (RBC) [Mass/Vol] 34.0 g/dL Normal 29.9-35.2 [facility] Comment on above: Performed By: #### C BC #### [facility] [address] [address] [address] Enoch Byrd MCV (RBC) [Entitic vol] 92.8 fL Normal 81.0-99.0 [facility] Comment on above: Performed By: #### C BC #### [facility] [address] [place] [address] Dr. Enoch Byrd MONO # 0.3 103/ul Normal 0.3-0.8 [facility] Comment on above: Performed By: #### C BC #### [facility] [address] [place] [address] Dr. Enoch Byrd Monocytes/100 WBC (Bld) 5.7 % Normal 1.7-12.0 [facility] Comment on above: Performed By: #### C BC #### [facility] [address] [place] [address] Dr. Enoch Byrd NEUT # 2.5 103/ul Normal 1.4-6.5 [facility] Comment on above: Performed By: #### C BC #### [facility] [address] [place] [address] Dr. Enoch Byrd Neutrophils/100 WBC (Bld) 46.0 % Normal 43.0-75.0 [facility] Comment on above: Performed By: #### C BC #### [facility] [address] [place] [address] Dr. Enoch Byrd Platelet mean volume (Bld) [Entitic vol] 9.0 fL Critically low 9.5-13.5 [facility] Comment on above: Performed By: #### C BC #### [facility] [address] [place] [address] Dr. Enoch Byrd PLT 205 103/ul Normal 150-450 [facility] Comment on above: Performed By: #### C BC #### [facility] [address] [place] [address] Dr. Enoch Byrd RBC 4.44 106/ul Normal 4.20-5.40 [facility] Comment on above: Performed By: #### C BC #### [facility] [address] [place] [address] Dr. Enoch Byrd WBC 5.5 103/ul Normal 4.0-11.0 [facility] Comment on above: Performed By: #### C BC #### [facility] [address] [place] [address] Dr. Enoch Byrd PREG HCG QUALon 10-24-2021 , QUAL Negative Normal NEGATIVE [facility] Comment on above: Performed By: #### P REG #### [facility] [address] [place] [address] Dr. Enoch Byrd [facility] SARS-CoV-2 (COVID-19) RNA JLUIS+probe Ql (Unsp spec) Not detected Normal NOT DETECTED [facility] Comment on above: Result Comment: When diagnostic [...] for this test is supported by the [place] of Health and Human Service's declaration that [...] Performed By: #### P TT, PT #### [facility] [address] [place] [address] Dr. Enoch Byrd CBC AUTO DIFFon 09-16-2021 BASO # 0.0 103/ul Normal 0.0-0.1 [facility] Comment on above: Performed By: #### C BC #### [facility] [address] [place] [address] Dr. Enoch Byrd Basophils/100 WBC (Bld) 0.2 % Normal 0.2-2.0 [facility] Comment on above: Performed By: #### C BC #### [facility] [address] [place] [address] Dr. Enoch Byrd EO # 0.1 103/ul Normal 0.0-0.7 [facility] Comment on above: Performed By: #### C BC #### [facility] [address] [place] [address] Dr. Enoch Byrd Eosinophils/100 WBC (Bld) 1.0 % Normal 0.9-7.0 [facility] Comment on above: Performed By: #### C BC #### [facility] [address] [place] [address] Dr. Enoch Byrd Erythrocyte distribution width (RBC) [Ratio] 12.7 % Normal 11.0-15.0 [facility] Comment on above: Performed By: #### C BC #### [facility] [address] [place] [address] Dr. Enoch Byrd Hematocrit (Bld) [Volume fraction] 40.8 % Normal 36.0-48.0 [facility] Comment on above: Performed By: #### C BC #### [facility] [address] [place] [address] Dr. Enoch Byrd Hemoglobin (Bld) [Mass/Vol] 13.4 g/dL Normal 12.0-16.0 [facility] Comment on above: Performed By: #### C BC #### [facility] [address] [place] [address] Dr. Enoch Byrd IG # 0.01 10e3/ul Normal 0.00-0.03 [facility] Comment on above: Performed By: #### C BC #### [facility] [address] [place] [address] Dr. Enoch Byrd IG % 0.2 % Normal 0.0-0.5 [facility] Comment on above: Performed By: #### C BC #### [facility] [address] [place] [address] Dr. Enoch Byrd LYMPH # 1.8 103/ul Normal 1.2-3.8 [facility] Comment on above: Performed By: #### C BC #### [facility] [address] [place] [address] Dr. Enoch Byrd Lymphocytes/100 WBC (Bld) 34.8 % Normal 20.5-60.0 [facility] Comment on above: Performed By: #### C BC #### [facility] [address] [place] [address] Dr. Enoch Byrd MANUAL DIFF REQ NO Normal [facility] Comment on above: Performed By: #### C BC #### [facility] [address] [place] [address] Dr. Enoch Byrd MCH (RBC) [Entitic mass] 30.7 pg Normal 26.7-34.0 [facility] Comment on above: Performed By: #### C BC #### [facility] [address] [place] [address] Dr. Enoch Bryd MCHC (RBC) [Mass/Vol] 32.8 g/dL Normal 29.9-35.2 [facility] Comment on above: Performed By: #### C BC #### [facility] [address] [place] [address] Dr. Enoch Byrd MCV (RBC) [Entitic vol] 93.6 fL Normal 81.0-99.0 [facility] Comment on above: Performed By: #### C BC #### [facility] [address] [place] [address] Dr. Enoch Byrd MONO # 0.3 103/ul Normal 0.3-0.8 [facility] Comment on above: Performed By: #### C BC #### [facility] [address] [place] [address] Dr. Enoch Byrd Monocytes/100 WBC (Bld) 5.7 % Normal 1.7-12.0 [facility] Comment on above: Performed By: #### C BC #### [facility] [address] [place] [address] Dr. Enoch Byrd NEUT # 3.1 103/ul Normal 1.4-6.5 [facility] Comment on above: Performed By: #### C BC #### [facility] [address] [place] [address] Dr. Enoch Byrd Neutrophils/100 WBC (Bld) 58.1 % Normal 43.0-75.0 [facility] Comment on above: Performed By: #### C BC #### [facility] [address] [address] [address] Enoch Byrd Platelet mean volume (Bld) [Entitic vol] 9.1 fL Critically low 9.5-13.5 [facility] Comment on above: Performed By: #### C BC #### [facility] [address] [address] [address] Enoch Byrd PLT 216 103/ul Normal 150-450 [facility] Comment on above: Performed By: #### C BC #### [facility] [address] [place] [address] Dr. Enoch Byrd RBC 4.36 106/ul Normal 4.20-5.40 [facility] Comment on above: Performed By: #### C BC #### [facility] [address] [place] [address] Dr. Enoch Byrd WBC 5.3 103/ul Normal 4.0-11.0 [facility] Comment on above: Performed By: #### C BC #### [facility] [address] [place] [address] Dr. Enoch Byrd PREG QUANT HCGon 09-16-2021 HCG QUANT 1 mIU/mL Normal [facility] Comment on above: Performed By: #### P REGQNT, TSH #### [facility] [address] [place] [address] Dr. Enoch Byrd HCG RANGE SEE BELOW Normal [facility] Comment on above: Result Comment: 5-50 0-1 WEEK 40-300 1-2 WEEKS 100-1,000 2-3 WEEKS 500-6,000 3-4 WEEKS 5,000-200,000 1-2 MONTHS 10,000-100,000 2-3 MONTHS 3,000-50,000 2ND TRIMESTER 1,000-50,000 3RD TRIMESTER Performed By: #### P REGQNT, TSH #### [facility] [address] [place] [address] Dr. Enoch Byrd PROTIMEon 09-16-2021 INR Coag (PPP) [Relative time] 0.95 {INR} Normal [facility] Comment on above: Performed By: #### P TT, PT #### [facility] [address] [place] [address] Dr. Enoch Byrd INR GUIDELINES SEE BELOW Normal [facility] Comment on above: Result Comment: MARCOS RED INR: 2.0 - 3.0 CONDITIONS NOT LISTED BELOW 2.5 - 3.5 FOR PROSTHETIC HEART VALVE REPLACEMENT 2.5 - 3.5 RECURRENT THROMBOSIS Performed By: #### P TT, PT #### [facility] [address] [place] [address] Dr. Enoch Byrd PT Coag (PPP) [Time] 10.3 s Normal 9.0-11.6 [facility] Comment on above: Performed By: #### P TT, PT #### [facility] [address] [place] [address] Dr. Enoch Byrd PTTon 09-16-2021 aPTT Coag (Bld) [Time] 29.6 s Normal 22.3-36.2 [facility] Comment on above: Performed By: #### P TT, PT #### [facility] [address] [place] [address] Dr. Enoch Byrd TSHon 09-16-2021 TSH 0.743 uIU/mL Normal 0.470-4.680 [facility] Comment on above: Performed By: #### P REGQNT, TSH #### [facility] [address] [place] [address] Dr. Enoch Byrd TSH RANGE SEE BELOW Normal [facility] Comment on above: Result Comment: <0.3 4 UIU/ml HYPERTHYROID 0.34-5.60 UIU/ml EUTHYROID >5.60 UIU/ml HYPOTHYROID Performed By: #### P REGQNT, TSH #### [facility] [address] [place] [address] Dr. Enoch Byrd US PELVIS AND TRANSVAGon [...] KAT VERA Date: 2021-09-16 16:14 Normal [facility] AMYLASEon 01-22-2021 Amylase [Catalytic activity/Vol] 66 U/L Normal 31-110 [facility] Comment on above: Performed By: #### P TT, PT #### [facility] [address] [place] [address] Dr. Enoch Byrd CBC AUTO DIFFon 01-22-2021 BASO # 0.0 103/ul Normal 0.0-0.1 [facility] Comment on above: Performed By: #### P TT, PT #### [facility] [address] [place] [address] Dr. Enoch Byrd Basophils/100 WBC (Bld) 0.2 % Normal 0.2-2.0 [facility] Comment on above: Performed By: #### P TT, PT #### [facility] [address] [place] [address] Dr. Enoch Byrd EO # 0.0 103/ul Normal 0.0-0.7 [facility] Comment on above: Performed By: #### P TT, PT #### [facility] [address] [place] [address] Dr. Enoch Byrd Eosinophils/100 WBC (Bld) 0.7 % Critically low 0.9-7.0 [facility] Comment on above: Performed By: #### P TT, PT #### [facility] [address] [place] [address] Dr. Enoch Byrd Erythrocyte distribution width (RBC) [Ratio] 12.6 % Normal 11.0-15.0 [facility] Comment on above: Performed By: #### P TT, PT #### [facility] [address] [place] [address] Dr. Enoch Byrd Hematocrit (Bld) [Volume fraction] 41.9 % Normal 36.0-48.0 [facility] Comment on above: Performed By: #### P TT, PT #### [facility] [address] [place] [address] Dr. Enoch Byrd Hemoglobin (Bld) [Mass/Vol] 13.9 g/dL Normal 12.0-16.0 [facility] Comment on above: Performed By: #### P TT, PT #### [facility] [address] [place] [address] Dr. Enoch Byrd IG # 0.01 10e3/ul Normal 0.00-0.03 [facility] Comment on above: Performed By: #### P TT, PT #### [facility] [address] [place] [address] Dr. Enoch Byrd IG % 0.2 % Normal 0.0-0.5 [facility] Comment on above: Performed By: #### P TT, PT #### [facility] [address] [place] [address] Dr. Enoch Byrd LYMPH # 2.3 103/ul Normal 1.2-3.8 [facility] Comment on above: Performed By: #### P TT, PT #### [facility] [address] [place] [address] Dr. Enoch Byrd Lymphocytes/100 WBC (Bld) 37.4 % Normal 20.5-60.0 [facility] Comment on above: Performed By: #### P TT, PT #### [facility] [address] [place] [address] Dr. Enoch Byrd MANUAL DIFF REQ NO Normal [facility] Comment on above: Performed By: #### P TT, PT #### [facility] [address] [place] [address] Dr. Enoch Byrd MCH (RBC) [Entitic mass] 31.2 pg Normal 26.7-34.0 [facility] Comment on above: Performed By: #### P TT, PT #### [facility] [address] [place] [address] Dr. Enoch Byrd MCHC (RBC) [Mass/Vol] 33.2 g/dL Normal 29.9-35.2 [facility] Comment on above: Performed By: #### P TT, PT #### [facility] [address] [place] [address] Dr. Enoch Byrd MCV (RBC) [Entitic vol] 93.9 fL Normal 81.0-99.0 [facility] Comment on above: Performed By: #### P TT, PT #### [facility] [address] [place] [address] Dr. Enoch Byrd MONO # 0.4 103/ul Normal 0.3-0.8 [facility] Comment on above: Performed By: #### P TT, PT #### [facility] [address] [place] [address] Dr. Enoch Byrd Monocytes/100 WBC (Bld) 5.9 % Normal 1.7-12.0 [facility] Comment on above: Performed By: #### P TT, PT #### [facility] [address] [place] [address] Dr. Enoch Byrd NEUT # 3.4 103/ul Normal 1.4-6.5 [facility] Comment on above: Performed By: #### P TT, PT #### [facility] [address] [place] [address] Dr. Enoch Byrd Neutrophils/100 WBC (Bld) 55.6 % Normal 43.0-75.0 [facility] Comment on above: Performed By: #### P TT, PT #### [facility] [address] [place] [address] Dr. Enoch Byrd Platelet mean volume (Bld) [Entitic vol] 9.5 fL Normal 9.5-13.5 [facility] Comment on above: Performed By: #### P TT, PT #### [facility] [address] [place] [address] Dr. Enoch Byrd PLT 187 103/ul Normal 150-450 [facility] Comment on above: Performed By: #### P TT, PT #### [facility] [address] [place] [address] Dr. Enoch Byrd RBC 4.46 106/ul Normal 4.20-5.40 [facility] Comment on above: Performed By: #### P TT, PT #### [facility] [address] [place] [address] Dr. Enoch Byrd WBC 6.1 103/ul Normal 4.0-11.0 [facility] Comment on above: Performed By: #### P TT, PT #### [facility] [address] [place] [address] Dr. Enoch Byrd LIPASEon 01-22-2021 Lipase [Catalytic activity/Vol] 79.0 U/L Normal 23.0-300.0 [facility] Comment on above: Performed By: #### P TT, PT #### [facility] [address] [place] [address] Dr. Enoch Byrd PROF 14(COMP METB)on 021 Albumin [Mass/Vol] 4.2 g/dL Normal 3.5-5.0 [facility] Comment on above: Performed By: #### P TT, PT #### [facility] [address] [place] [address] Dr. Enoch Byrd Albumin/Globulin [Mass ratio] 1.4 {ratio} Normal [facility] Comment on above: Performed By: #### P TT, PT #### [facility] [address] [place] [address] Dr. Enoch Byrd ALP [Catalytic activity/Vol] 42 U/L Normal 38-126 [facility] Comment on above: Performed By: #### P TT, PT #### [facility] [address] [address] [address] Enoch Byrd ALT [Catalytic activity/Vol] 17 U/L Normal 9-52 [facility] Comment on above: Performed By: #### P TT, PT #### [facility] [address] [address] [address] Enoch Byrd Anion gap [Moles/Vol] 12.7 mmol/L Normal [facility] Comment on above: Performed By: #### P TT, PT #### [facility] [address] [address] [address] Enoch Byrd AST [Catalytic activity/Vol] 15 U/L Normal 14-36 [facility] Comment on above: Performed By: #### P TT, PT #### [facility] [address] [place] [address] Dr. Enoch Byrd Bilirubin [Mass/Vol] 0.6 mg/dL Normal 0.2-1.3 [facility] Comment on above: Performed By: #### P TT, PT #### [facility] [address] [address] [address] Enoch Byrd Calcium [Mass/Vol] 8.7 mg/dL Normal 8.4-10.2 [facility] Comment on above: Performed By: #### P TT, PT #### [facility] [address] [place] [address] Dr. Enoch Byrd Chloride [Moles/Vol] 105 mmol/L Normal 98-107 [facility] Comment on above: Performed By: #### P TT, PT #### [facility] [address] [address] [address] Enoch Byrd CO2 [Moles/Vol] 28.8 mmol/L Normal 22.0-30.0 [facility] Comment on above: Performed By: #### P TT, PT #### [facility] [address] [address] [address] Enoch Byrd Creatinine [Mass/Vol] 0.95 mg/dL Normal 0.52-1.04 [facility] Comment on above: Performed By: #### P TT, PT #### [facility] [address] [address] [address] Enoch Byrd EGFR-AF AUSTRIAN >60 Normal >=60 [facility] Comment on above: Performed By: #### P TT, PT #### [facility] [address] [address] [address] Enoch Byrd EGFR-NON AF AUSTRIAN >60 Normal >=60 [facility] Comment on above: Performed By: #### P TT, PT #### [facility] [address] [address] [address] Enoch Byrd Globulin (S) [Mass/Vol] 3.1 g/dL Normal [facility] Comment on above: Performed By: #### P TT, PT #### [facility] [address] [place] [address] Dr. Enoch Byrd Glucose [Mass/Vol] 83 mg/dL Normal 74-106 [facility] Comment on above: Performed By: #### P TT, PT #### [facility] [address] [place] [address] Dr. Enoch Byrd Potassium [Moles/Vol] 4.5 mmol/L Normal 3.4-5.0 [facility] Comment on above: Performed By: #### P TT, PT #### [facility] [address] [place] [address] Dr. Enoch Byrd Protein [Mass/Vol] 7.3 g/dL Normal 6.1-8.2 [facility] Comment on above: Performed By: #### P TT, PT #### [facility] [address] [address] [address] Enoch Byrd Sodium [Moles/Vol] 142 mmol/L Normal 137-145 [facility] Comment on above: Performed By: #### P TT, PT #### [facility] [address] [place] [address] Dr. Enoch Byrd Urea nitrogen [Mass/Vol] 14.0 mg/dL Normal 7.0-17.0 [facility] Comment on above: Performed By: #### P TT, PT #### [facility] [address] [place], [place] [address] Dr. Enoch Byrd Urea nitrogen/Creatinine [Mass ratio] 14.7 mg/mg Normal [facility] Comment on above: Performed By: #### P TT, PT #### [facility] [address] [place], [place] [address] Dr. Enoch Byrd US SINGLE QUAD RT [...] KAT MENDEZ Date: 2021-01-22 11:11 Normal [facility] Encounters Encounter Date Encounter Type Care Provider Facility Start: 07-28-2023 End: 07-28-2023 ambulatory CLAIR DANIELLA Not Available Start: 07-28-2023 End: 07-28-2023 ambulatory CLAIR DANIELLA Not Available Start: 06-23-2023 End: 06-23-2023 ambulatory CLAIR DANIELLA Not Available Start: 06-23-2023 End: 06-23-2023 ambulatory CLAIR DANIELLA Not Available Start: 05-19-2023 End: 05-19-2023 ambulatory ANDI BALDEMAR Not Available Start: 05-19-2023 End: 05-19-2023 ambulatory ANDI BALDEMAR Not Available Start: 05-15-2022 End: 05-16-2022 ambulatory [facility] Start: 05-15-2022 End: 05-16-2022 Encounter for general adult medical examination without abnormal findings [facility] Start: 05-15-2022 End: 05-15-2022 Subsequent hospital visit by physician Laine Jack MD Work Phone: [facility] Start: 12-23-2021 End: 12-23-[address] ANDI REBOLLEDO Facility:[facility] Start: 10-24-2021 End: 10-24-[address] ANDI REBOLLEDO Facility:[facility] Start: 10-24-2021 Encounter for preprocedural laboratory examination DR ANDI REBOLLEDO [facility] Start: 10-21-2021 End: 10-22-[address] ANDI REBOLLEDO Facility:[facility] Start: 10-21-2021 End: 10-22-2021 Encounter for preprocedural laboratory examination DR ANDI REBOLLEDO Facility:[facility] Start: 10-14-2021 Encounter for other preprocedural examination DR ANDI REBOLLEDO [facility] Start: 10-09-2021 End: 10-10-[address] [...] 02-02-2022 Influenza vaccination Flu vaccine (# 1) [facility] Start: 02-28-2018 Screening for malign ant neoplasm of cervix [facility] Start: 02-28-2009 Screening for malign ant neoplasm of cervix Pap smear [facility] Start: 02-28-2007 DTaP/Tdap/Td vaccine (1 - Tdap) DTaP/Tdap/Td vaccine (1 - Tdap) [facility] Start: 02-28-2006 Hepatitis C screening Hepatitis C sc sangeeta [facility] Start: 02-28-2003 HIV screening HIV screen [facility] Start: 2000 Depression Screen Depression Screen [facility] Start: 02-28-1989 Varicella vaccine (1 of 2 - 2-dose childhood series) Varicella vaccine (1 of 2 - 2-dose childhood series) [facility] Start: 1988 COVID-19 Vaccine (#1) COVID-19 Vacci ne (#1) [facility] Payers Date Payer Category Payer Unknown [id number] 1990 Unknown [id number] 2.16.84 [id number] 1988 Unknown [id number] 2.16.84 [id number] 1988 Unknown [id number] 2.16.84 [id number] 1988 Unknown [id number] 2.16.84 [id number] 1988 Unknown [id number] 2.16.84 [id number] 1988 Unknown [id number] 2.16.84 [id number] 1988 Unknown [id number] 2.16.84 [id number] 1988 Unknown [id number] 2.16.8 [id number] 1988 Unknown [id number] 2.16.84 [id number] 1988 Unknown [id number] 2.16.840 .[id number] 1988 Unknown [id number] 2.16.840. 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 PREOPERATIVE DIAGNOSIS: 1. Desires permanent sterilization. 2. Abnormal uterine bleeding. 3. Dysmenorrhea. POSTOPERATIVE DIAGNOSIS: 1. Desires permanent sterilization. 2. Abnormal uterine bleeding. 3. Dysmenorrhea. ANESTHESIA: General. SURGEON: Andi Rebolledo D.O. BUSINESS SYSTEMS ARCHITECT: COLEMAN [employer] URINE OUTPUT: Yellow and clear. [...] Rebolledo DO on 11/18/2021 09:39 AM EDT [facility] Signed and Approved by: DR ANDI REBOLLEDO . 11/18/2021 09:39:00 [facility] Clinical Note 10-24-2021 Note Date & Type Note Facility 10-24-2021 Note OPERATIVE NOTE OPERATION DATE:10/24/2021 PROCEDURE: Gina endometrial ablation with hysteroscopy, bilateral laparoscopic salpingectomy. PREOPERATIVE DIAGNOSIS: Desires permanent sterilization, abnormal uterine bleeding, dysmenorrhea. POSTOPERATIVE DIAGNOSIS: Desires permanent sterilization, abnormal uterine bleeding, dysmenorrhea. ANESTHESIA: General. SURGEON: Andi Rebolledo D.O. BUSINESS SYSTEMS ARCHITECT: COLEMAN Tinoco URINE OUTPUT: Yellow and clear. [...] instruments were removed from the vagina. [facility] Summary Purpose Family History No Family History Records FoundNo Family History Records FoundNo Family History Records FoundNo Family History Records Found Advance Directives No Advanced Directives Records FoundNo Advanced Directives Records FoundNo Advanced Directives Records FoundNo Advanced Directives Records Found Additional Source Comments INFORMATION SOURCE (unrecogn ized section and content) DATE CREATED AUTHOR 12/27/2021 [facility] DATE CREATED AUTHOR AUTHOR'S ORGANIZ ATION 05/15/2022 [facility] DATE CREATED AUTHOR AUTHOR'S ORGANIZ ATION 07/29/2023 [facility] EPIC DATE CREATED AUTHOR AUTHOR'S ORGANIZ ATION 03/08/2024 [facility] Care Teams (unrecognized sec tion and content) Range Operator Relationship Specialty Start Date End Date Laine Jack MD [address] [place] [address] PCP - General Family Medicine 09/02/18 FOR [...] BE BASED ON THE PRIMARY CLINICAL RECORDS. [employer] provides no warranty or guarantee of the accuracy or completeness of information in this document.
[2024-09-21 11:08] LABS: Age Gdln ACOG Testing Note (.); HPV Aptima Negative (Negative); IGP, Aptima HPV, rfx 16/18,45 Note (.)
== END 2024-09-18 20:41 | disposition home or self-care (01) ==
LOC: LAB 20:40
PROVIDERS: Visit Provider Physician Assistant
DX: Z01.419 Encounter for gynecological examination (general) (routine) without abnormal findings (principal)
CPT/HCPCS: 87624; 88175

== ENCOUNTER 2024-10-03 16:25 | Outpatient (OUT) | payer OTHER, SELFPAY ==
--- NOTE | 2024-10-03 16:28 | MM_ITS ---
Patient Name: YENI MONTAGUE MR#: [id number] : 1990 Exam Date: 10/03/2024 Ordering Doctor: KATHE Golden . RADIOLOGY REPORT PROCEDURE: MM TOMOSYNTHESIS SCREENING BI COMPARISON: None. INDICATIONS: Screening for malignant neoplasm Calculator Name [facility] Breast Cancer Risk Assessment Tool 5 Year Breast Cancer Risk 0.60% Lifetime Breast Cancer Risk 17.60% Personal Breast Cancer No Personal Ovarian Cancer No Treatments None Family Cancers Mother with breast cancer at age 50; Grandmother-maternal with breast cancer at age 50; Grandmother-paternal with breast cancer at age 80; Father with prostate cancer at age 54; Grandfather-paternal with prostate cancer at age 75. LOCATION: [facility] BREAST COMPOSITION: There are scattered areas of fibroglandular density. FINDINGS: DIAGNOSTIC CATEGORY 1--NEGATIVE. LEFT BREAST: No significant suspicious finding. RIGHT BREAST: No significant suspicious finding. RECOMMENDATIONS: ROUTINE MAMMOGRAM AND CLINICAL EVALUATION IN 12 MONTHS. PLEASE NOTE: A NORMAL MAMMOGRAM DOES NOT EXCLUDE THE POSSIBILITY OF BREAST CANCER. A CLINICALLY SUSPICIOUS PALPABLE LUMP SHOULD BE BIOPSIED. Dictated by: Jose Muñoz DO on 10/04/2024 at 15:29 Approved by: Jose Muñoz DO on 10/04/2024 at 15:30
== END 2024-10-03 16:26 | disposition home or self-care (01) ==
LOC: MAMMO 16:25
PROVIDERS: PCP Nurse Practitioner Family; Visit Provider Physician Assistant
DX: Z01.419 Encounter for gynecological examination (general) (routine) without abnormal findings (principal); Z80.3 Family history of malignant neoplasm of breast; Z12.31 Encounter for screening mammogram for malignant neoplasm of breast; Z80.42 Family history of malignant neoplasm of prostate
CPT/HCPCS: 77063; 77067